=== PATIENT | male | born 1965 | race African-American/Black ===

== ENCOUNTER 2020-08-28 11:54 | Inpatient (IN) | payer OTHER ==
[2020-08-28 12:35] LABS: #Basophils 0.1 thou/uL (0.0-0.2); #Eosinphils 0.4 thou/uL (0.0-0.7); #Lymphocytes 1.9 thou/uL (1.20-3.40); #Monocytes 0.8 thou/uL (0.11-0.59); #Neutrophils 6.3 thou/uL (1.40-6.50); %Basophils 0.7 % (0.0-1.0); %Eosinophils 4.6 % (0.0-10.0); %Lymphocytes 20.1 % (21.0-51.0); %Monocytes 8.8 % (0.0-10.0); %Neutrophils 65.8 % (42.0-75.0); Mean Corpuscular HGB CONC 33.2 g/dL (32.0-36.0); Mean Corpuscular Hemoglobin 33.3 pg (27.0-31.0); Mean Platelet Volume 8.6 fL (7.4-10.4); Platelet Count 269 thou/uL (130-400); Red Blood Cell (RBC) Count 3.59 mill/uL (4.70-6.10); White Blood Cell (WBC) Count 9.6 thou/uL (4.8-10.8)
[2020-08-28 12:58] LABS: ALT (SGPT) 18 U/L (8-55); AST (SGOT) 17 U/L (5-34); Albumin 3.3 g/dL (3.5-5.0); Alkaline Phosphatase 142 U/L (40-110); Anion Gap 13 mmol/L (10-20); BUN (Urea Nitrogen) 21 mg/dL (8.4-25.7); Bilirubin, Total 0.3 mg/dL (0.2-1.2); Calc. Creatinine Clearance 0 mL/min (70-130); Carbon Dioxide 35 mmol/L (22-29); Chloride 96 mmol/L (98-107); Estimated GFR-MDRD 16; Glucose 115 mg/dL (70-105); Potassium 3.2 mmol/L (3.5-5.1); Protein, Total 7.3 g/dL (6.0-8.3); Sodium 141 mmol/L (136-145)
--- NOTE | 2020-08-28 13:46 | RAD ---
PORTABLE CHEST: 08/28/20 PROVIDED CLINICAL HISTORY: Hypotension. FINDINGS: Comparison is made with the study dated 07/03/20. Cardiac and mediastinal silhouette is unchanged. Right IJ dialysis catheter is again seen in similar position. Left sided central line is no longer evident. No focal consolidation, pleural fluid, or pne umothorax apparent. IMPRESSION: No evidence for an acute cardiopulmonary process. POS: TAMEKA
[2020-08-28] MEDS ORDERED: Potassium Chloride 20 MEQ TAB ONE (14:24)
[2020-08-28] MEDS ORDERED: Cefepime 2 GM VIAL ONE ×2 (14:24→14:53)
[2020-08-28] MEDS ORDERED: Ondansetron PF 4 MG/2 ML Vial IVP PRN (16:28)
[2020-08-28] MEDS ORDERED: Guaifenesin DM 100-10/5 ML UDCUP PO PRN (16:28)
[2020-08-28] MEDS ORDERED: Bisacodyl 10 MG SUPP PR PRN (16:28)
[2020-08-28] MEDS ORDERED: Dextrose 5% in Water 1,000 ML IV PRN (16:28)
[2020-08-28] MEDS ORDERED: DOPamine 400 MG/D5W 250 ML 250 ML IVPB PRN (16:28)
[2020-08-28] MEDS ORDERED: Dextrose 50% Abboject 50 ML SYRINGE SLOW IVP PRN (16:28)
[2020-08-28] MEDS ORDERED: Senokot S 8.6-50 MG TAB PO PRN (16:28)
[2020-08-28] MEDS ORDERED: Calcium Carbonate 500 MG ChewTAB PO PRN (16:28)
[2020-08-28] MEDS ORDERED: HumaLOG 300 UNITS/3 ML VIAL SC PRN ×2 (16:28)
[2020-08-28] MEDS ORDERED: Acetaminophen 325 MG TAB PO PRN (16:28)
[2020-08-28] MEDS ORDERED: Sodium Chloride 0.9% 1,000 ML IV SCH (16:30)
[2020-08-28] MEDS ORDERED: Vancomycin HCl 1 GM in Sodium Chloride 0.9% 250 ML 300 ML IVPB SCH (16:30)
--- NOTE | 2020-08-28 17:50 | HP ---
REASON FOR ADMISSION: Hypotension, possible sepsis. HISTORY OF PRESENTING ILLNESS: Please note, the patient is a very poor historian. Per patient, his Guardian [facility] nurse, came to check on him for a routine visit. His blood pressure was 60/40. She called EMS, and the patient was sent to the ER. On arrival here, his systolic blood pressure was in the 80s. He got a liter of bolus, it came up to 106. The blood pressure is trending back to 70s again systolic. He has no complaints of fever, cough, or expectoration. The patient states from January of this year, he has been bed-bound. He has not had any stroke. He apparently had a fall from his bed and ended up having pneumonia, after which he went to [facility] in [facility], and since then, has been bed-bound. He lives with his mom. He states he can scoot himself to a wheelchair for mobilization. He also has chronic sacral wound and has a wound VAC attached to it. He usually goes to [facility]. He has been on dialysis from last 2 months per the patient. He is using his fistula and his tunnel catheter has not been used for the last several times with dialysis per the patient. There is no pain around the tunneled dialysis catheter site. No pain in his calf area, abdominal pain, nausea, vomiting, or diarrhea. No chest pain or palpitation. He does not have any pain in any of his spine areas right from cervical all the way down to the lumbar area. PAST MEDICAL AND SURGICAL HISTORY: End-stage renal disease, on hemodialysis from last 2 months per the patient. He has been bed-bound from January of this year from unknown cause due to severe deconditioning likely. Severe malnutrition with very poor oral intake and states he has been living on soup mostly. History of CHF, chronic anemia, GERD, diabetes mellitus type 2, hypertension, history of osteomyelitis, dialysis access fistula in the left upper extremity. He also has a tunneled dialysis catheter in the right infraclavicular area. PERSONAL HISTORY: Does not abuse alcohol or drugs. No history of smoking. Lives with his mom. He is bed-bound and mobilizes himself to wheelchair. Has guardian, [facility]. FAMILY HISTORY: Cannot be accurately obtained. The patient has 4 children. He is not , has 2 boys and 2 girls. Power of privacy attorney is his mom, Ms. Celeste Sandoval. CURRENT MEDICATIONS: The patient is on: 1. Colace 50 mg daily. 2. Humalog 4 to 5 units subcu daily with meals. 3. Lantus 10 units subcu at bedtime. 4. Omeprazole 20 mg daily. 5. Sevelamer 800 mg p.o. 3 times daily. ALLERGIES: NO KNOWN DRUG ALLERGIES. CODE STATUS: Full. Power of privacy attorney is his mom. REVIEW OF SYSTEMS: CONSTITUTIONAL: Negative for weight loss or gain, ability to conduct usual activities. SKIN: Negative for rash, itching. EYES: Negative for double vision, pain. ENT/MOUTH: Negative for nose bleeding, neck stiffness, pain, tenderness. CARDIOVASCULAR: Negative for palpitations, dyspnea on exertion, orthopnea. RESPIRATORY: Negative for shortness of breath, wheezing, cough, hemoptysis, fever or night sweats. GASTROINTESTINAL: Negative for poor appetite, abdominal pain, heartburn, nausea, vomiting, constipation, or diarrhea. GENITOURINARY: Negative for urgency, frequency, dysuria, nocturia. MUSCULOSKELETAL: Negative for pain, swelling. NEUROLOGIC/PSYCHIATRIC: Negative for anxiety, depression. ALLERGY/IMMUNOLOGIC: Negative for skin rash, bleeding tendency. PHYSICAL EXAMINATION: GENERAL: The patient is a 55-year-old male, who is currently not in any acute distress. VITAL SIGNS: Blood pressure currently 70/50, pulse 84 per minute, respiratory rate 18 per minute, temperature 97.9 degrees Fahrenheit, and saturating 100% on room air. NECK: Supple. No elevated JVD. HEENT: Eyes; extraocular muscles intact. Pupils reacting to light. Oral cavity; mucous membranes are dry. No exudates or congestion. CARDIOVASCULAR SYSTEM: S1 and S2 heard, regular rhythm. RESPIRATORY SYSTEM: Air entry 1+ bilateral. No rales or rhonchi. ABDOMEN: Soft. Bowel sounds heard. No tenderness, rigidity, or guarding. The patient has some voluntary guarding. EXTREMITIES: There is disuse atrophy of all 4 extremities, but he moves them. Mild edema in the lower extremities. No calf tenderness. Peripheral pulses are 1+ bilateral. No ischemic ulcers or gangrene. The patient has sacral decubitus with wound VAC attached. He likely also has some decubitus in the right greater trochanter area, which is unclear at present due to wound VAC being applied in the area. CENTRAL NERVOUS SYSTEM: No gross focal motor deficits noted. The patient is lethargic, but responds to verbal questions. PSYCHIATRIC SYSTEM: The patient is a bit lethargic, but no obvious hallucinations or delusions. LABORATORY DATA: EKG done shows normal sinus rhythm at 89 beats per minute. No gross ST-T wave changes. White count of 9, H and H 12 and 36, platelet count 269, MCV 100 with 65% neutrophils. Potassium 3.2, serum bicarb 35, BUN 21, creatinine 4.7, serum glucose 115. Lactic acid 2.5. Liver enzymes; AST and ALT within normal limits, alkaline phosphatase 142, albumin is 3.3. Chest x-ray done shows no acute cardiopulmonary process. CLINICAL IMPRESSION AND PLAN: The patient will be admitted to [facility] for persistent hypotension to rule out sepsis. We will consult Dr. Dill to remove the tunneled hemodialysis catheter, which is not being used and to send the tip for culture. He has chronic sacral decubitus and his wound is in a wound VAC, unclear if this is infected. There are no other obvious sites of infection at present. Blood cultures have been obtained. We will also obtain COVID-19 PCR. He will be on cefepime, Flagyl, and vancomycin for now. We will consult Dr. Torres for Infectious Disease and Dr. Marsh for Nephrology. PT/OT evaluations will be requested as well as Wound Care. He will be on heparin 5000 units subcu twice daily for DVT prophylaxis. The second liter of bolus is being given in the ER. If needed, third liter will be given and the patient will be placed on normal saline at 100 mL/h thereafter. His last hemodialysis was yesterday. We will also place him on dopamine on a p.r.n. basis if needed. Echo with 2D Doppler to rule out vegetation. We will continue to closely monitor him in [facility] for now. The patient has expressed he wants to be a full code. I have discussed this with him at bedside. Job ID: [id number] MTDD
[2020-08-28 18:15] LABS: Lactic Acid 2.7 mmol/L (0.5-2.2)
[2020-08-28] MEDS ORDERED: Vancomycin HCl 1.25 GM in Sodium Chloride 0.9% 250 ML 250 ML IVPB SCH (18:30)
[2020-08-28] MEDS ORDERED: Lidocaine 1% w/Epinephrine 1:100K 20 ML VIAL FS SCH (22:00)
[2020-08-28] MEDS: Heparin 5,000 UNITS/ML VIAL SC SCH (22:13)
[2020-08-28] MEDS: metroNIDAZOLE 500 MG in Premix Bag 1 BAG IVPB SCH (22:14)
[2020-08-28] MEDS: Sevelamer Carbonate 800 MG TAB PO SCH (22:15)
[2020-08-29 03:34] LABS: #Eosinphils 0.4 thou/uL (0.0-0.7); #Lymphocytes 1.8 thou/uL (1.20-3.40); #Monocytes 0.7 thou/uL (0.11-0.59); #Neutrophils 4.4 thou/uL (1.40-6.50); %Basophils 0.3 % (0.0-1.0); %Eosinophils 5.5 % (0.0-10.0); %Lymphocytes 23.9 % (21.0-51.0); %Monocytes 9.5 % (0.0-10.0); %Neutrophils 60.8 % (42.0-75.0); Hemoglobin 10.1 g/dL (14.0-18.0); Mean Corpuscular HGB CONC 32.4 g/dL (32.0-36.0); Mean Corpuscular Hemoglobin 32.5 pg (27.0-31.0); Mean Platelet Volume 8.7 fL (7.4-10.4); Platelet Count 227 thou/uL (130-400); RBC Distribution Width 15.3 % (11.5-14.5); Red Blood Cell (RBC) Count 3.09 mill/uL (4.70-6.10); White Blood Cell (WBC) Count 7.3 thou/uL (4.8-10.8)
[2020-08-29 03:56] LABS: ALT (SGPT) 14 U/L (8-55); AST (SGOT) 14 U/L (5-34); Albumin 2.6 g/dL (3.5-5.0); Alkaline Phosphatase 109 U/L (40-110); Anion Gap 13 mmol/L (10-20); BUN (Urea Nitrogen) 24 mg/dL (8.4-25.7); Bilirubin, Total 0.3 mg/dL (0.2-1.2); Calc. Creatinine Clearance 19 mL/min (70-130); Calcium 9.2 mg/dL (7.8-10.44); Carbon Dioxide 26 mmol/L (22-29); Chloride 103 mmol/L (98-107); Estimated GFR-MDRD 14; Globulin 3.2 g/dL (2.4-3.5); Glucose 132 mg/dL (70-105); Potassium 3.3 mmol/L (3.5-5.1); Protein, Total 5.8 g/dL (6.0-8.3); Sodium 139 mmol/L (136-145)
[2020-08-29] MEDS ORDERED: Vancomycin 1 GM in Premix Bag 1 BAG IVPB SCH (09:00)
[2020-08-29] MEDS ORDERED: Vancomycin HCl 750 MG in Sodium Chloride 0.9% 250 ML 250 ML IVPB SCH (09:00)
[2020-08-29] MEDS ORDERED: Vancomycin HCl 1.25 GM in Sodium Chloride 0.9% 250 ML 250 ML IVPB SCH (09:00)
[2020-08-29] MEDS ORDERED: Vancomycin HCl 500 MG in Sodium Chloride 0.9% 100 ML IVPB SCH (09:00)
[2020-08-29] MEDS ORDERED: HOLD VANCOMYCIN FOR LEVEL >20 IVP SCH (09:00)
[2020-08-29] MEDS: Sodium Chloride 0.9% 1,000 ML IV SCH (09:10)
[2020-08-29] MEDS: Sevelamer Carbonate 800 MG TAB PO SCH ×3 (09:30→17:25)
[2020-08-29] MEDS: Heparin 5,000 UNITS/ML VIAL SC SCH ×2 (09:30→22:23)
[2020-08-29] MEDS: metroNIDAZOLE 500 MG in Premix Bag 1 BAG IVPB SCH (09:30)
[2020-08-29] MEDS: Docusate Sodium 10 MG/1 ML Oral Suspension PO SCH (09:31)
[2020-08-29] MEDS ORDERED: Iopamidol 370 76% 100 ML VIAL ONE (10:11)
--- NOTE | 2020-08-29 12:05 | PDOC.HOSPP ---
- Subjective Encounter Date: 08/29/20 Encounter Time: 09:30 Subjective: no sob or chest pain no cough or diarrhea or abd pain or nausea says he can amb with rw once someone helps him to get started - Objective Vital Signs & Weight: Vital Signs (12 hours) Temp Pulse Ox 08/29/20 11:56 96.6 F L 08/29/20 08:00 100 08/29/20 07:02 96.7 F L 08/29/20 03:44 100 08/29/20 03:43 97.0 F L Weight Weight 185 lb 15.993 oz Most Recent Monitor Data Heart Rate from ECG 79 NIBP 96/55 NIBP BP-Mean 68 Respiration from ECG 4 SpO2 100 I&O: 08/28/20 08/29/20 08/30/20 06:59 06:59 06:59 Intake Total 340 Output Total 0 Balance 340 Result Diagrams: 08/29/20 03:16 08/29/20 03:16 Additional Labs: Accuchecks 08/29/20 08/29/20 08/28/20 11:05 05:44 23:06 POC Glucose 111 H 112 H 99 Hospitalist ROS - Medication Medications: Active Medications Generic Name Dose Route Start Last Admin Trade Name Freq PRN Reason Stop Dose Admin Docusate Sodium 50 mg 08/29/20 09:00 08/29/20 09:31 Docusate Sodium 10 Mg/1 Ml Oral Suspension PO Not Given DAILY GHASSAN Heparin Sodium (Porcine) 5,000 units 08/28/20 21:00 08/29/20 09:30 Heparin 5,000 Units/Ml Vial SC 5,000 units BID GHASSAN Administration Metronidazole 500 mg/ Device 100 mls @ 100 mls/hr 08/28/20 21:00 08/29/20 09:30 IVPB 100 mls Q12HR GHASSAN Administration Pantoprazole Sodium 40 mg 08/29/20 09:00 08/29/20 09:32 Pantoprazole 40 Mg Tab PO 40 mg DAILY GHASSAN Administration Sevelamer Carbonate 800 mg 08/28/20 17:00 08/29/20 09:30 Sevelamer Carbonate 800 Mg Tab PO 800 mg TID-WM GHASSAN Administration Sodium Chloride 10 ml 08/28/20 21:00 08/29/20 09:32 Flush - Normal Saline 10 Ml Syringe IVF 10 ml Q12HR GHASSAN Administration - Exam General Appearance: awake alert Eye: PERRL, anicteric sclera ENT: no oropharyngeal lesions, moist mucosa Neck: supple, no JVD Heart: RRR, no murmur Respiratory: no wheezes, no rales Gastrointestinal: soft, non-tender, non-distended, normal bowel sounds Extremities: no cyanosis, no edema Neurological: cranial nerve grossly intact, no focal deficits Hosp A/P (1) Hypotension Status: Acute Qualifiers: Hypotension type: unspecified hypotension type Qualified Code(s): I95.9 - Hypotension, unspecified (2) Sepsis Code(s): A41.9 - SEPSIS, UNSPECIFIED ORGANISM Status: Suspected Qualifiers: Sepsis type: sepsis due to unspecified organism Sepsis acute organ dysfunction status: without acute organ dysfunction Qualified Code(s): A41.9 - Sepsis, unspecified organism (3) DM type 2 (diabetes mellitus, type 2) Status: Chronic Qualifiers: Diabetes mellitus intermediate insulin use: with termite control service representative use Diabetes mellitus complication detail: with chronic kidney disease Chronic kidney disease stage: on chronic dialysis (4) Moderate protein-calorie malnutrition Code(s): E44.0 - MODERATE PROTEIN-CALORIE MALNUTRITION Status: Chronic (5) FTT (failure to thrive) in adult Status: Chronic (6) ESRD (end stage renal disease) on dialysis Code(s): N18.6 - END STAGE RENAL DISEASE; Z99.2 - DEPENDENCE ON RENAL DIALYSIS Status: Chronic (7) Hypertension Code(s): I10 - ESSENTIAL (PRIMARY) HYPERTENSION Status: Chronic Qualifiers: Hypertension type: essential hypertension Qualified Code(s): I10 - Essential (primary) hypertension - Plan continue iv hydration await culture results will have removal of his tunnelled HD cath today by still sbp around 80's, his baseline runs around 100 per patient he has lost a lot of weight per patient dietary consultation PT to mobilize as tolerated is on cefepime, vanc with HD, ID consult, echo to r/o vegetation prognosis guarded with multiple med issues and poor functional status. may transfer to tele once his BP stabilizes encourage po intake
[2020-08-29 12:40] LABS: SARS-CoV-2 MS2 Positive; SARS-CoV-2 N Gene Negative; SARS-CoV-2 S Gene Negative; SARS-CoV-2 by NAA Not Detected (NotDetected); SARS-CoV-2 orf1ab Negative
[2020-08-29] MEDS ORDERED: Cefepime 1 GM in Sodium Chloride 0.9% 100 ML IVPB SCH (14:00)
[2020-08-29] MEDS ORDERED: Cosyntropin 250 MCG VIAL SLOW IVP SCH (16:45)
--- NOTE | 2020-08-29 16:53 | PRG ---
DATE OF SERVICE: 08/29/2020 Bob Sandoval is a 55-year-old male patient, who has a functioning dialysis graft placed on 07/02/2020 left upper extremity. They have been using this for hemodialysis. I have been asked to see him regarding removal of his hemodialysis catheter. The patient has had low blood pressure of uncertain reason. He remains afebrile. His white count is 7 and hemoglobin is 10. He is undergoing a CT scan of the abdomen and pelvis. I can remove his hemodialysis catheter this hospitalization prior to discharge. We will plan on that. This will be performed at his bedside under local anesthetic and he does not need to be n.p.o. We will await his CAT scan and assure he does not need this line for IV access. Job ID: [id number]
[2020-08-29] MEDS ORDERED: Heparin 10,000 UNITS/ 10 ML VIAL CATH PRN (20:26)
[2020-08-29] MEDS ORDERED: FLU VACC QS2020-21(6MOS UP)/PF 60 MCG/0.5 ML SYRINGE IM ONE (21:00)
--- NOTE | 2020-08-29 22:07 | CT ---
CHEST CT WITH CONTRAST ABDOMEN CT WITH CONTRAST PELVIC CT WITH CONTRAST: History: Sepsis. Unknown source. Infection. FINDINGS: CHEST CT: No acute abnormality in the lower neck. No mediastinal mass, lymphadenopathy, or hematoma. Normal heart size. No significant pericardial flui d. The thoracic abnormal and the abdominal aorta have a normal caliber. No periaortic fat stranding. Trachea and central bronchi are patent. Subpleural lymph node adjacent to the major fissure. Dependen t atelectatic changes in the right and left lower lobes. Trace left sided pleural effusion. Small loc ulated air collection along the lateral right pleural margin may represent a tiny loculated pneumotho rax. Small pleural based air collections are noted along the right major fissure. No evidence of consolidation. ABDOMEN CT: Mild hyperemia and enhancement associated with the gallbladder. Gallbladder is contracted. Liver, spleen, adrenal glands and pancreas have appropriate attenuation and enhancement. No gastrohepatic, retrocrural, or periportal lymphadenopathy. No mesenteric mass, lymphadenopathy, free air or free fluid. Symmetric enhancement of the kidneys. Bilaterally, no obstructive uropathy. Subcentimeter hypodensity in the left kidney is too small to characterize. Gastromucosa, duodenum, and multiple normal caliber small bowel loops. Normal ileocecal junction. Nor mal caliber appendix. Scattered fecal material in a nondistended, nondilated colon. There is bowel wa ll thickening with pericolonic fat stranding and pneumatosis involving the distal sigmoid colon and r ectum. There is presacral fat stranding. There is concern for sequelae of colitis. PELVIC CT: No mass, lymphadenopathy, free air or free fluid. No acute abnormality with regards to the urinary bl adder. There is a sacral decubitus ulcer. There is destruction of the coccyx, compatible with osteomyelitis. No lytic or blastic lesions in the osseous structures. IMPRESSION: 1. Small loculated pleural air in the right hemithorax. These are in the pleural space and do cl assify as pneumothoraces. However, these lesions are contained. 2. Sequelae of colitis. 3. Decubitus ulcer. 4. Osteomyelitis of the coccyx. 5. Results of study conveyed to Dr. Strickland via [facility] 08-29-2020 at 8:38 p.m. POS: PPP
--- NOTE | 2020-08-29 23:17 | CON ---
DATE OF CONSULTATION: 08/29/2020 REASON: Hypotension. HISTORY OF PRESENT ILLNESS: A 55-year-old, history of type 2 diabetes and end- stage renal disease, on hemodialysis until now through a tunneled catheter in the right IJ position, but that catheter is going to be removed, and he has already successfully used the left upper extremity AV graft that was placed a few months ago. He has normally low blood pressure, usually the maximum systolic is 100, and he is having physical therapy after a recent discharge from [facility] where he was admitted for not yet very clear reason, so he has been getting physical therapy for the past 2 months to try to get him to walk again. He is able to move his legs, but is too weak to walk for the past few months. His home health nurse checked and his BP was 60/40, so she referred him to the emergency room. On arrival, systolic was in the 80s, he was given IV fluids, went up to 106. The patient reportedly has not eaten or drank much of fluids over the past few weeks for unclear etiology. He denies any vomiting. No diarrhea. He does not have much urine output. Has not had any fever. No respiratory symptoms. No pain described. No change in mental state. MEDICAL HISTORY: 1. End-stage renal disease secondary to type 2 diabetes, hemodialysis through a tunneled catheter. 2. Weakness. 3. Inability to ambulate for unclear etiology. 4. Malnutrition. Poor oral intake for unclear etiology. 5. Cardiomyopathy. 6. Chronic anemia. 7. Type 2 diabetes. 8. Hypertension. 9. Osteomyelitis in the feet. 10. Dialysis access fistula, left upper extremity, not a graft, but a fistula, and a tunneled catheter in the right IJ. SOCIAL HISTORY: Lives in the area. Never a smoker. FAMILY HISTORY: Type 2 diabetes. ALLERGIES: NONE. MEDICATION: Include, 1. Cefepime. 2. Dopamine. 3. Heparin. 4. Vancomycin. 5. Sliding scale. 6. Flagyl. PHYSICAL EXAMINATION: VITAL SIGNS: He was afebrile through the stay in the emergency room. He was saturating 100% as well. His BP on arrival was 80/40 and then 118/72. SKIN: Exam shows areas of hyperkeratosis at the distal aspect of his feet. Some onycholysis noted as well. He has a tunneled catheter in the right IJ position which is supposed to be removed shortly and the left AV fistula which is functional at the moment. He has no Posey catheter. He is voiding whatever small amount of urine goes in the diaper. Some areas of hyperpigmented patches in his skin. There is no lymphadenopathy. HEENT: Ocular movements conjugate. Some temporal wasting. Oral cavity without thrush. NECK: Supple. No jugular vein distention. LUNGS: Symmetric. Clear breath sounds. HEART: S1 and S2 with a soft aortic murmur. No S3 or S4. ABDOMEN: Soft. Not distended or tender. No ascites. No bladder distention. No organomegaly. EXTREMITIES: No joint inflammatory activity. Plantar responses are upgoing on the left side. No clonus. No edema. He is able to move upper and lower extremities, but he is weak. NEUROLOGIC: He is oriented. Follows commands. Speech is normal. LABORATORY DATA: White cell count 9.6, hemoglobin 7.3, platelets 227, with 60% neutrophils. Creatinine 5.24. Liver profile normal. Albumin 2.6. Two sets of blood cultures thus far no growth. Chest x-ray with no infiltrates. ASSESSMENT: 1. End-stage renal disease secondary to type 2 diabetes. 2. Anorexia with decreased oral intake and marked weight loss over the past few months of unclear etiology. 3. Malnutrition. DISCUSSION: The differential diagnosis includes an undisclosed malignancy, gastroparesis, liver disease, and infection is less likely, volume depletion associated with malnutrition due to protracted decrease in oral intake and self-restricted dietary intake is possible, but there is no evidence of increased output from vomiting, nausea, or diarrhea. Geary's disease possible. At this moment, we will discontinue antimicrobial therapy and check his micronutrients. Consider Cortrosyn stimulation test and follow up the results of the CT scan that has been ordered. May want to consider imaging his chest as well. Job ID: [id number] [facility]
[2020-08-30] MEDS: Sodium Chloride 0.9% 1,000 ML IV SCH ×2 (03:30→16:20)
[2020-08-30] MEDS ORDERED: Heparin 10,000 UNITS/ 10 ML VIAL ONE (09:21)
[2020-08-30] MEDS: Sevelamer Carbonate 800 MG TAB PO SCH ×3 (12:37→16:44)
[2020-08-30] MEDS: Heparin 5,000 UNITS/ML VIAL SC SCH ×2 (13:38→21:33)
[2020-08-30] MEDS: Docusate Sodium 10 MG/1 ML Oral Suspension PO SCH (13:38)
--- NOTE | 2020-08-30 14:05 | PDOC.HOSPP ---
- Subjective Encounter Date: 08/30/20 Encounter Time: 11:00 Subjective: is getting HD now no complaints has loss of appetite and didn't like his breakfast - Objective Vital Signs & Weight: Vital Signs (12 hours) Temp Pulse Ox 08/30/20 12:00 97.6 F 08/30/20 07:38 96.4 F L 08/30/20 07:30 100 08/30/20 03:53 97.6 F Weight Admit Weight 185 lb 6 oz Weight 190 lb 8 oz Most Recent Monitor Data Heart Rate from ECG 81 NIBP 118/67 NIBP BP-Mean 84 Respiration from ECG 8 SpO2 100 I&O: 08/29/20 08/30/20 08/31/20 06:59 06:59 06:59 Intake Total 340 3380 Output Total 0 0 Balance 340 3380 Result Diagrams: 08/29/20 03:16 08/29/20 03:16 Additional Labs: Accuchecks 08/30/20 08/30/20 08/29/20 10:52 05:57 23:10 POC Glucose 84 95 92 08/29/20 16:40 POC Glucose 79 Hospitalist ROS - Medication Medications: Active Medications Generic Name Dose Route Start Last Admin Trade Name Freq PRN Reason Stop Dose Admin Cosyntropin 250 mcg 08/29/20 16:45 08/30/20 05:42 Cosyntropin 250 Mcg Vial SLOW IVP 08/30/20 16:46 250 mcg WILLCALL GHASSAN Administration Docusate Sodium 50 mg 08/29/20 09:00 08/30/20 13:38 Docusate Sodium 10 Mg/1 Ml Oral Suspension PO Not Given DAILY GHASSAN Heparin Sodium (Porcine) 5,000 units 08/28/20 21:00 08/30/20 13:38 Heparin 5,000 Units/Ml Vial SC Not Given BID GHASSAN Sodium Chloride 1,000 mls @ 70 mls/hr 08/29/20 11:45 08/30/20 03:30 Normal Saline 0.9% IV 1,000 mls .[id number] GHASSAN Administration Pantoprazole Sodium 40 mg 08/29/20 09:00 08/29/20 09:32 Pantoprazole 40 Mg Tab PO 40 mg DAILY GHASSAN Administration Sevelamer Carbonate 800 mg 08/28/20 17:00 08/30/20 12:37 Sevelamer Carbonate 800 Mg Tab PO Not Given TID-WM GHASSAN Sodium Chloride 10 ml 08/28/20 21:00 08/30/20 13:38 Flush - Normal Saline 10 Ml Syringe IVF Not Given Q12HR GHASSAN - Exam General Appearance: awake alert Eye: PERRL, anicteric sclera ENT: no oropharyngeal lesions, moist mucosa Neck: supple, no JVD Heart: RRR, no murmur Respiratory: no wheezes, no rales Gastrointestinal: soft, non-tender, non-distended, normal bowel sounds Extremities: no cyanosis, no edema Neurological: cranial nerve grossly intact, no focal deficits Psychiatric: A&O x 3 Hosp A/P (1) Hypotension Status: Resolved Qualifiers: Hypotension type: unspecified hypotension type Qualified Code(s): I95.9 - Hypotension, unspecified (2) Sepsis Code(s): A41.9 - SEPSIS, UNSPECIFIED ORGANISM Status: Ruled-out Qualifiers: Sepsis type: sepsis due to unspecified organism Sepsis acute organ dysf unction status: without acute organ dysfunction Qualified Code(s): A41.9 - Sepsis, unspecified organism (3) DM type 2 (diabetes mellitus, type 2) Status: Chronic Qualifiers: Diabetes mellitus petroleum terminal plant operator insulin use: with petroleum terminal plant operator use Diabetes mellitus complication detail: with chronic kidney disease Chronic kidney disease stage: on chronic dialysis (4) Moderate protein-calorie malnutrition Code(s): E44.0 - MODERATE PROTEIN-CALORIE MALNUTRITION Status: Chronic (5) FTT (failure to thrive) in adult Status: Chronic (6) ESRD (end stage renal disease) on dialysis Code(s): N18.6 - END STAGE RENAL DISEASE; Z99.2 - DEPENDENCE ON RENAL DIALYSIS Status: Chronic (7) Hypertension Code(s): I10 - ESSENTIAL (PRIMARY) HYPERTENSION Status: Chronic Qualifiers: Hypertension type: essential hypertension Qualified Code(s): I10 - Essentia l (primary) hypertension - Plan hypotension due to inadequate oral intake and cachexia from loss of appetite CT imaging shows signs of coccygeal osteo??, has chronic decubitus in the area stage 4 with wound vac, await ID/surgical opinion his baseline sbp runs around 100 per patient he has lost a lot of weight per patient dietary consultation PT to mobilize as tolerated is on vanc with HD, echo shows normal ef and no vegetation prognosis guarded with multiple med issues and poor functional status. may transfer to medical encourage po intake may need placement?
[2020-08-31] MEDS: Sevelamer Carbonate 800 MG TAB PO SCH ×3 (08:27→18:00)
[2020-08-31] MEDS: Heparin 5,000 UNITS/ML VIAL SC SCH ×2 (08:27→21:49)
[2020-08-31] MEDS: Docusate Sodium 10 MG/1 ML Oral Suspension PO SCH (08:28)
--- NOTE | 2020-08-31 13:43 | PDOC.HOSPP ---
- Subjective Encounter Date: 08/31/20 Encounter Time: 08:45 Subjective: no complaints is eating better per patient - Objective Vital Signs & Weight: Vital Signs (12 hours) Temp Pulse Resp BP Pulse Ox 08/31/20 13:38 98.0 F 81 20 103/69 98 08/31/20 07:47 97.7 F 93 18 106/73 99 08/31/20 04:00 97.7 F 84 20 97/53 L 99 Weight Admit Weight 185 lb 6 oz Weight 187 lb 9.285 oz Most Recent Monitor Data Heart Rate from ECG 107 NIBP 126/77 NIBP BP-Mean 93 Respiration from ECG 17 SpO2 100 I&O: 08/30/20 08/31/20 09/01/20 06:59 06:59 06:59 Intake Total 3380 1570 Output Total 0 1000 Balance 3380 570 Result Diagrams: 08/29/20 03:16 08/29/20 03:16 Additional Labs: Accuchecks 08/31/20 08/31/20 08/30/20 11:52 05:01 20:40 POC Glucose 96 100 119 H Hospitalist ROS - Medication Medications: Active Medications Generic Name Dose Route Start Last Admin Trade Name Freq PRN Reason Stop Dose Admin Acetaminophen 650 mg 08/28/20 16:28 08/31/20 11:07 Acetaminophen 325 Mg Tab PO 650 mg Q4H PRN Administration Headache/Fever/Mild Pain (1-3) Docusate Sodium 50 mg 08/29/20 09:00 08/31/20 08:28 Docusate Sodium 10 Mg/1 Ml Oral Suspension PO Not Given DAILY GHASSAN Heparin Sodium (Porcine) 5,000 units 08/28/20 21:00 08/31/20 08:27 Heparin 5,000 Units/Ml Vial SC 5,000 units BID GHASSAN Administration Pantoprazole Sodium 40 mg 08/29/20 09:00 08/31/20 08:27 Pantoprazole 40 Mg Tab PO 40 mg DAILY GHASSAN Administration Sevelamer Carbonate 800 mg 08/28/20 17:00 08/31/20 11:07 Sevelamer Carbonate 800 Mg Tab PO 800 mg TID-WM GHASSAN Administration Sodium Chloride 10 ml 08/28/20 21:00 08/31/20 08:28 Flush - Normal Saline 10 Ml Syringe IVF Not Given Q12HR GHASSAN - Exam General Appearance: NAD, awake alert Eye: PERRL, anicteric sclera ENT: no oropharyngeal lesions, moist mucosa Neck: supple, no JVD Heart: RRR, no murmur Respiratory: no wheezes, no rales Gastrointestinal: soft, non-tender, non-distended, normal bowel sounds Extremities: no cyanosis, 1+ LE edema Neurological: cranial nerve grossly intact, no focal deficits Psychiatric: normal affect, A&O x 3 Hosp A/P (1) Hypotension Status: Resolved Qualifiers: Hypotension type: unspecified hypotension type Qualified Code(s): I95.9 - Hypotension, unspecified (2) Sepsis Code(s): A41.9 - SEPSIS, UNSPECIFIED ORGANISM Status: Ruled-out Qualifiers: Sepsis type: sepsis due to unspecified organism Sepsis acute organ dysfunct ion status: without acute organ dysfunction Qualified Code(s): A41.9 - Sepsis, unspecified organism (3) DM type 2 (diabetes mellitus, type 2) Status: Chronic Qualifiers: Diabetes mellitus terminal operator insulin use: with terminal operator use Diabetes mellitus complication detail: with chronic kidney disease Chronic kidney disease stage: on chronic dialysis (4) Moderate protein-calorie malnutrition Code(s): E44.0 - MODERATE PROTEIN-CALORIE MALNUTRITION Status: Chronic (5) FTT (failure to thrive) in adult Status: Chronic (6) ESRD (end stage renal disease) on dialysis Code(s): N18.6 - END STAGE RENAL DISEASE; Z99.2 - DEPENDENCE ON RENAL DIALYSIS Status: Chronic (7) Hypertension Code(s): I10 - ESSENTIAL (PRIMARY) HYPERTENSION Status: Chronic Qualifiers: Hypertension type: essential hypertension Qualified Code(s): I10 - Essential (primary) hypertension - Plan hypotension due to inadequate oral intake and cachexia from loss of appetite CT imaging shows signs of coccygeal osteo??, has chronic decubitus in the area stage 4 with wound vac, await ID/surgical opinion his baseline sbp runs around 100 per patient he has lost a lot of weight per patient dietary consultation PT to mobilize as tolerated echo shows normal ef and no vegetation prognosis guarded with multiple med issues and poor functional status. encourage po intake he stays with his mother and brother who will help him on discharge, he does not want to be placed.
--- NOTE | 2020-08-31 14:49 | PRG ---
DATE OF SERVICE: 08/31/2020 Bob Sandoval is doing well. His white count is normal. Blood cultures negative. CAT scan of the abdomen, pelvis, and chest suggested sacral osteomyelitis. The patient is on dialysis. He does not need his hemodialysis catheter for dialysis anymore, but his hemodialysis catheter is a cuffed-tunneled catheter and if Dr. Torres needs antibiotics that cannot be administered during dialysis, this would serve as IV access. We will await Dr. Torres' decision prior to removing the catheter. The catheter also is being used for IV access in this hospitalization. I can remove the catheter before discharge or at a later time as outpatient depending on Dr. Torres' recommendations. Job ID: [id number]
[2020-09-01] MEDS: Sevelamer Carbonate 800 MG TAB PO SCH ×3 (09:07→17:58)
[2020-09-01] MEDS: Docusate Sodium 10 MG/1 ML Oral Suspension PO SCH (09:07)
[2020-09-01] MEDS: Heparin 5,000 UNITS/ML VIAL SC SCH ×2 (13:18→22:05)
[2020-09-01 13:51] VITALS: BMI 28.5
--- NOTE | 2020-09-01 14:05 | PDOC.HOSPP ---
- Subjective Encounter Date: 09/01/20 Encounter Time: 08:15 Subjective: is getting HD, no abd pain or sob - Objective Vital Signs & Weight: Vital Signs (12 hours) Temp Pulse Resp BP Pulse Ox 09/01/20 07:57 97.7 F 78 16 114/76 99 Weight Admit Weight 185 lb 6 oz Weight 210 lb 8 oz Most Recent Monitor Data Heart Rate from ECG 107 NIBP 126/77 NIBP BP-Mean 93 Respiration from ECG 17 SpO2 100 I&O: 08/31/20 09/01/20 09/02/20 06:59 06:59 06:59 Intake Total 1570 840 Output Total 1000 Balance 570 840 Result Diagrams: 08/29/20 03:16 08/29/20 03:16 Additional Labs: Accuchecks 09/01/20 08/31/20 08/31/20 04:37 19:50 16:00 POC Glucose 96 91 113 H Hospitalist ROS - Medication Medications: Active Medications Generic Name Dose Route Start Last Admin Trade Name Freq PRN Reason Stop Dose Admin Acetaminophen 650 mg 08/28/20 16:28 08/31/20 11:07 Acetaminophen 325 Mg Tab PO 650 mg Q4H PRN Administration Headache/Fever/Mild Pain (1-3) Docusate Sodium 50 mg 08/29/20 09:00 09/01/20 09:07 Docusate Sodium 10 Mg/1 Ml Oral Suspension PO Not Given DAILY [facility] Heparin Sodium (Porcine) 5,000 units 08/28/20 21:00 09/01/20 13:18 Heparin 5,000 Units/Ml Vial SC Not Given BID GHASSAN Pantoprazole Sodium 40 mg 08/29/20 09:00 09/01/20 13:19 Pantoprazole 40 Mg Tab PO Not Given DAILY GHASSAN Sevelamer Carbonate 800 mg 08/28/20 17:00 09/01/20 13:19 Sevelamer Carbonate 800 Mg Tab PO Not Given TID-WM [facility] Sodium Chloride 10 ml 08/28/20 21:00 09/01/20 09:07 Flush - Normal Saline 10 Ml Syringe IVF Not Given Q12HR GHASSAN - Exam General Appearance: awake alert Eye: PERRL, anicteric sclera ENT: no oropharyngeal lesions, moist mucosa Neck: supple, no JVD Heart: RRR, no murmur Respiratory: no wheezes, no rales Gastrointestinal: soft, non-tender, non-distended, normal bowel sounds Extremities: no cyanosis, 1+ LE edema Neurological: cranial nerve grossly intact, no focal deficits Psychiatric: normal affect, A&O x 3 Hosp A/P (1) Hypotension Status: Resolved Qualifiers: Hypotension type: unspecified hypotension type Qualified Code(s): I95.9 - Hypotension, unspecified (2) Sepsis Code(s): A41.9 - SEPSIS, UNSPECIFIED ORGANISM Status: Ruled-out Qualifiers: Sepsis type: sepsis due to unspecified organism Sepsis acute organ dysfunction status: without acute organ dysfunction Qualified Code(s): A41.9 - Sepsis, unspecified organism (3) DM type 2 (diabetes mellitus, type 2) Status: Chronic Qualifiers: Diabetes mellitus tank terminal gauger insulin use: with tank terminal gauger use Diabetes mellitus complication detail: with chronic kidney disease Chronic kidney disease stage: on chronic dialysis (4) Moderate protein-calorie malnutrition Code(s): E44.0 - MODERATE PROTEIN-CALORIE MALNUTRITION Status: Chronic (5) FTT (failure to thrive) in adult Status: Chronic (6) ESRD (end stage renal disease) on dialysis Code(s): N18.6 - END STAGE RENAL DISEASE; Z99.2 - DEPENDENCE ON RENAL DIALYSIS Status: Chronic (7) Hypertension Code(s): I10 - ESSENTIAL (PRIMARY) HYPERTENSION Status: Chronic Qualifiers: Hypertension type: essential hypertension Qualified Code(s): I10 - Essential (primary) hypertension - Plan hypotension due to inadequate oral intake resolved, has cachexia from loss of appetite CT imaging shows signs of coccygeal osteo??, has chronic decubitus in the area stage 4 with wound vac, await ID opinion his baseline sbp runs around 100 per patient he has lost a lot of weight per patient dietary consultation PT to mobilize as tolerated, says he mobilizes with rolling walker at home. echo shows normal ef and no vegetation prognosis guarded with multiple med issues and poor functional status. encourage po intake he stays with his mother and brother who will help him on discharge, he does not want to be placed.
[2020-09-01] MEDS ORDERED: Vancomycin HCl 1 GM in Sodium Chloride 0.9% 250 ML 250 ML IVPB SCH (16:15)
--- NOTE | 2020-09-01 16:31 | PRG ---
DATE OF SERVICE: SUBJECTIVE: The patient is feeling well, counting on being discharged soon. He does not have any shortness of breath or abdominal pain or diarrhea and spoke with Dr. Dill and he was enquiring about keeping the tunneled catheter in place, which might help administer the antimicrobial therapy for his treatments. OBJECTIVE: VITAL SIGNS: His vital signs are normal. He is afebrile. Blood pressure 114/76, heart rate 70, and O2 sats 99. GENERAL: Awake, alert, oriented. LUNGS: Symmetric, clear breath sounds. HEART: S1 and S2. Tunneled catheter in the left IJ position. ABDOMEN: Soft, not distended. Presacral ulceration with a negative pressure dressing. LABORATORY DATA: White cell count 9.6, hemoglobin 12, platelets 269. ASSESSMENT AND DISCUSSION: End-stage renal disease, type 2 diabetes, anorexia, decreased oral intake, marked weight loss, malnutrition. The patient had a CT chest, abdomen, and pelvis and it showed a small loculated pleural area in the right hemithorax, sequelae of colitis with pericolonic fat stranding and pneumatosis involving the distal sigmoid colon and the rectum, presacral fat stranding, osteomyelitis of coccyx, decubitus ulcer, so we are forced to treat this finding and we will go ahead and prescribe vancomycin sliding scale plus Rocephin and Flagyl and Flagyl orally adjusted for renal function and Rocephin 2 g daily given through the dialysis catheter which is not used for dialysis only. Alternate approach would be to give him all oral regimen altogether, which would allow removal of the hemodialysis catheter. Weekly labs until the end of September. The area of colitis is not clear. He probably will need down the road an endoscopy to evaluate the mucosal side of this process. Job ID: [id number]
[2020-09-01] MEDS ORDERED: Vancomycin 1 GM in Premix Bag 1 BAG IVPB SCH (16:45)
[2020-09-01] MEDS: metroNIDAZOLE 250 MG TAB PO SCH (22:04)
[2020-09-02] MEDS: Docusate Sodium 10 MG/1 ML Oral Suspension PO SCH (08:41)
[2020-09-02] MEDS: Heparin 5,000 UNITS/ML VIAL SC SCH ×2 (08:42→20:22)
[2020-09-02] MEDS: metroNIDAZOLE 250 MG TAB PO SCH ×3 (08:42→20:22)
[2020-09-02] MEDS: Sevelamer Carbonate 800 MG TAB PO SCH ×3 (08:42→17:07)
--- NOTE | 2020-09-02 16:32 | DIS ---
DATE OF ADMISSION: 08/28/2020 DATE OF DISCHARGE: 09/02/2020 DISCHARGE DISPOSITION: Home with [facility]. PRIMARY DISCHARGE DIAGNOSES: Coccygeal osteomyelitis, sepsis, failure to thrive with severe protein malnutrition, diabetes mellitus type 2, initial hypotension due to poor oral intake and loss of appetite. PROCEDURES DONE DURING HOSPITALIZATION: Chest x-ray showed no acute cardiopulmonary process. CT chest, abdomen, and pelvis with contrast done showed findings of small loculated pleural air in the right hemithorax, decubitus ulcer in the sacral area, osteomyelitis of the coccyx. Echo with 2D Doppler showed EF of 60% to 65%. LABORATORY DATA: Blood cultures x2, no growth. Hemoglobin and hematocrit of 10 and 31, platelet count 227. Vitamin B12 of 1108. Vitamin C 0.3 mg/dL, which is low. He has had cortisol stimulation test done, which was within normal limits. Albumin 2.6, total protein 5.8, BUN 24, creatinine 5.24. COVID-19 PCR was not detected on 08/28/2020. INPATIENT CONSULT: 1. Dr. Dill for General Surgery. 2. Dr. Torres for Infectious Disease. DISCHARGE MEDICATIONS: 1. Humalog 10 units subcu before meals. 2. Lantus q.a.m. as before. 3. Omeprazole 20 mg p.o. daily. 4. Sevelamer 800 mg p.o. three times daily. 5. Flagyl 250 mg p.o. three times daily until October 11. 6. Levaquin 250 mg p.o. daily until October 11. 7. Vancomycin with hemodialysis, sliding scale until October 11. The above 3 antibiotics are for osteomyelitis. ALLERGIES: NO KNOWN DRUG ALLERGIES. DISCHARGE PLAN: The patient to follow up with Dr. Torres in 2 weeks. He needs to follow up with primary care physician in 1 week. BRIEF COURSE DURING HOSPITALIZATION: The patient initially got admitted on the after his home health nurse found him having low blood pressures at home. He was given nearly 3 L of IV fluid and was initially admitted to [facility] with initial suspicion for possible sepsis. The patient had a tunnel catheter on the right chest, which he was not using as his AV graft was working fine for dialysis. In view of this, a Surgical consultation with Dr. Dill was requested for possible removal of the tunneled catheter. He has had pancultures drawn, which have not grown any organism. The patient has chronic sacral decubitus stage IV, present on arrival, which was in a wound VAC prior to arrival. The patient has had severe protein malnutrition and had loss of appetite. He has essentially been bed- bound from January of this year. Mr. Sandoval has had consultation with Dr. Marsh for Nephrology and has had dialysis during his stay here. In view of the patient losing weight from last few months and his loss of appetite, a CT chest, abdomen, and pelvis with contrast was obtained. This showed findings of osteomyelitis in the coccyx. He was placed on vancomycin, Flagyl, and Levaquin. He needs to continue this until October 11. Wound care was consulted to his sacral decubitus while he was in the hospital. The patient has [facility] and needs to continue the same. He was counseled with regard to eating healthy and exercising with physical therapy with home health. He was also given prescriptions for multivitamin including vitamin C and extra folic acid for nutritional deficiencies that he has. Please note, I have seen and examined the patient on the day of discharge. Job ID: [id number] [facility]
[2020-09-02 19:50] VITALS: BP 107/70; TEMP 97.7
--- NOTE | 2020-09-03 06:28 | OP ---
DATE OF PROCEDURE: 09/02/2020 PREOPERATIVE DIAGNOSES: End-stage renal disease, functioning dialysis graft, in need of dialysis catheter removal. POSTOPERATIVE DIAGNOSES: End-stage renal disease, functioning dialysis graft, in need of dialysis catheter removal. PROCEDURES PERFORMED: Right IJ cuffed tunneled hemodialysis catheter removal at bedside. ANESTHESIA: 1% Xylocaine with epinephrine. PROCEDURE IN DETAIL: At the patient's bedside, the catheter exit site was prepared with alcohol, suture removed, catheter and cuff dissected free under local anesthetic and removed intact. Pressure held for hemostasis. Patient tolerated the procedure well. Job ID: [id number]
--- NOTE | 2020-09-03 09:47 | PQF ---
CLINICAL DOCUMENTATION CLARIFICATION FORM: Dear Dr. Strickland Date: 09/03/2020 Please exercise your independent, professional judgment in responding to the clarification form. Clinical indicators are provided on the bottom of this form for your review. Please check appropriate box(es): Conflicting documentation was noted in the Medical Record; please clarify: [ x ] Sepsis [ ] Sepsis Ruled Out [ ] Other diagnosis [ ] Unable to determine In addition, please specify: Present on Admission (POA): [ x ] Yes [ ] No [ ] Unable to determine For continuity of documentation, please document condition throughout progress notes and discharge summary. Thank You. CLINICAL INDICATORS - SIGNS / SYMPTOMS / LABS / RESULTS AND LOCATION IN EMR *ED 08/28: * Vital Signs: BP 80/40-118/77 Pulse 80-89 RR 18 Temp (Max) 98.9 (oral) O2 Sat 98-100% Room Air * Slight elevation in lactic acid but no leukocytosis and no evidence for other systemic infection at this time. * Hypotension * Rule out Sepsis *LAB (EMR): WBC Neutrophils % Lactic Acid Procalcitonin 08/28 9.6 65.8 2.5 - 2.7 0.60 08/29 7.3 60.8 *H&P 08/28 (Marco A): * Admitted to IMCU for persistent hypotension to rule out sepsis * He has chronic sacral decubitis and his wound is in a wound VAC, unclear if this is infected. * We will consult Dr. Dill to remove the tunneled hemodialysis catheter send the tip for culture. *PN 08/29 (Marco A): Sepsis Status: Suspected *PN 08/30 (Marco A): * Sepsis Status: Ruled-Out * Hypotension due to inadequate oral intake and cachexia from loss of appetite. *PN 08/31 (Fuentes): * Blood cultures negative. * CAT scan of the abdomen, pelvis, and chest suggested sacral osteomyelitis. *DC Summary 09/02 (Marco A): * Primary Discharge Diagnosis: Coccygeal osteomyelitis, sepsis, failure to thrive with severe protein malnutrition initial hypotension due to poor oral intake and loss of appetite. RISK FACTORS / RESULTS AND LOCATION IN EMR *H&P 08/28 (Marco A): * Chronic sacral wound and has a wound VAC attached to it. * ... Tunneled dialysis catheter * Bed-bound from January . Severe deconditioning likely. * Severe malnutrition with very poor oral intake * Diabetes mellitus type 2 *PN 08/31 (Fuentes): CAT scan of the abdomen, pelvis, and chest suggested sacral osteomyelitis. TREATMENTS / RESULTS AND LOCATION IN EMR *ED 08/28: NS 1L x2 IV, NS 75 ml/h IV , Cefepime IV *H&P 08/28 (Marco A): Admitted to IMCU Consult Dr. Dill to remove the tunneled hemodialysis catheter Blood cultures have been obtained. He will be on cefepime, Flagyl, and vancomycin for now. We will consult Dr. Torres for Infectious Disease If needed, third liter will be given ... will be placed on NS at 100 ml/h thereafter. Echo with 2D Doppler to rule out vegetation. *Orders 08/28 (EMR): Consult: WoundCare Eval/Treat *Consultation 08/29 (Brian): At this moment, we will discontinue antimicrobial therapy and check his micronutrients. *Microbiology 08/28 (EMR): Blood Culture x2 *LAB ([facility]): CBC 08/28, 08/29, Lactic Acid 08/28 (x2), Procalcitonin 08/28 *PN 09/01 (Brian): .... Vancomycin sliding scale plus Rocephin and Flagyl and Flagyl orally adjusted for renal function and Rocephin 2 g daily given through the dialysis catheter .... Alternate approach would be to give him all oral regiment altogether, which would allow removal of the hemodialysis catheter. Thank you, Petra CDS/Director Physical Therapy Signature: Petra Lovell RN, CDS Phone #: [phone] [email or web address] This is a permanent part of the Medical Record [facility]
== END 2020-09-02 20:32 | disposition home health service (06) | DRG 871 ==
LOC: ERS 11:54 → IMCU/EMU 14:58 → T4-B 08-30 18:50
PROVIDERS: ADMIT Internal Medicine; ATTEND Internal Medicine
PROC: 3E02340 Introduction of Influenza Vaccine into Muscle, Percutaneous Approach (ICD-10-PCS; 2020-08-29)
PROC: 5A1D70Z Performance of Urinary Filtration, Intermittent, Less than 6 Hours Per Day (ICD-10-PCS; principal; 2020-08-30)
PROC: 02PYX3Z Removal of Infusion Device from Great Vessel, External Approach (ICD-10-PCS; 2020-09-02)
DX: A41.9 Sepsis, unspecified organism (principal); L89.154 Pressure ulcer of sacral region, stage 4; N18.6 End stage renal disease; E43 Unspecified severe protein-calorie malnutrition; I13.2 Hypertensive heart and chronic kidney disease with heart failure and with stage 5 chronic kidney disease, or end stage renal disease; I42.8 Other cardiomyopathies; R64 Cachexia; M46.28 Osteomyelitis of vertebra, sacral and sacrococcygeal region; K21.9 Gastro-esophageal reflux disease without esophagitis; E11.22 Type 2 diabetes mellitus with diabetic chronic kidney disease; E11.69 Type 2 diabetes mellitus with other specified complication; Z20.828 Contact with and (suspected) exposure to other viral communicable diseases; Z99.2 Dependence on renal dialysis; Z74.01 Bed confinement status; Z99.3 Dependence on wheelchair; Z79.899 Other long term (current) drug therapy; Z79.4 Long term (current) use of insulin; Z68.27 Body mass index [BMI] 27.0-27.9, adult; Z23 Encounter for immunization
CPT/HCPCS: 36415; 36416; 36600; 71045; 71260; 74177; 80053; 80400; 82180; 82274; 82607; 83605; 84145; 84207; 84425; 84484; 85025; 87040; 87635; 90471; 90662; 90935; 93005; 93306; G0008; G0257; J0692; J0834; J1644; J3370; J3490; J7050; Q9967; U0003

== ENCOUNTER 2020-12-06 07:05 | Day surgery (SDC) | payer OTHER ==
[2020-12-06] MEDS ORDERED: Activase 2 MG VIAL CATH SCH (07:45)
[2020-12-06] MEDS ORDERED: Midazolam HCl 2 mg/2 ml Vial ONE (08:43)
[2020-12-06] MEDS ORDERED: Fentanyl 100 MCG/2 ML VIAL ONE (08:43)
[2020-12-06] MEDS ORDERED: Heparin 1,000 UNITS/ML VIAL ONE (11:23)
--- NOTE | 2020-12-06 11:24 | SPC ---
PROCEDURE: 1. Left upper extremity arteriovenous dialysis fistulogram and venogram 2. Thrombolysis and percutaneous jejunal angioplasty left upper trauma the arteriovenous dialysis fis jorge 3. Mechanical Fogerty thrombectomy arteriovenous anastomosis PROVIDED CLINICAL HISTORY: Clotted left upper extremity arteriovenous dialysis fistula. Patient has a graft in place. COMPARISON: None TECHNIQUE: The procedure including the risks and complication were explained to the patient, and informed consen t was obtained. Patient was placed on the angiography table in the supine position. There is absence of a thrill or bruit in the left upper extremity arterial venous dialysis fistula. Limited ul trasound evaluation also does not demonstrate flow within the AV fistula/graft. The left upper extremity was meticulously prepped and draped in usual sterile fashion. The skin and subcutaneous tissues were infiltrated with buffered 1% lidocaine for local anesthesia at the intended puncture sites. The left upper extremity arteriovenous dialysis fistula/graft was accessed in both the venous and arterial directions with placement of short 6 Bermudian vascular sheaths . A 5 B[place]udian Berenstein catheter and 0.035 inch Glidewire were manipulated through the graft venous anastomosis. Venogram was performed demonstrating patency of the axillary and subclavian vein with ve ry sluggish flow due to occlusion of the fistula. A second 5 B[place]udian Berenstein catheter was then advanced through the arteriovenous anastomosis, and contrast injection confirms patency of the artery . This catheter was then withdrawn just within the graft. Approximately 3 mL of a mixture of 6 mg of recombinant TPA and sterile water were placed along the ar terial limb of the graft, and 6 mL of this mixture was then placed along the venous outflow of the graft. SENIOR CONTRACTS MANAGER was then performed throughout the graft including at the venous anastomosis. A severe foca l stricture was present at the graft venous anastomosis. However, the balloon did achieve full profile. A 0.018 inch guidewire was then advanced through the arteriovenous anastomosis. A 4 B[place]udian F ogarty balloon was advanced over the guidewire and placed just distal to the arteriovenous anastomosis. The balloon was slightly inflated and withdrawn through the arteriovenous anastomosis. T he balloon was then further dilated and withdrawn to the level of the sheath. Flow was present within the graft, but there is persistent irregularity throughout the graft. Angioplasty was again pe rformed from the level of the graft venous anastomosis throughout the graft. SENIOR CONTRACTS MANAGER was also performed of the proximal portion of the graft with the 6 mm diameter angioplasty balloon. Gio catheter was again replaced and withdrawn through the arteriovenous anastomosis. Again there was only sluggish flow seen throughout the fistula. 1 mL of remaining mixture of the sterile water and the recombinant tPA was then injected through the sheath directed in the arterial direction. Angioplasty was performed throughout the graft. However, again, adequate flow was unable to be established. The proce dure was terminated at this point. Patient tolerated the procedure well and without immediate complication. Fluoroscopy: Time-15 minutes Dose-[id number] mGy centimeter squared IMPRESSION: 1. Clotted left upper extremity arteriovenous dialysis fistula/graft with critical stenosis at the gr aft venous anastomosis. 2. Thrombolysis, SENIOR CONTRACTS MANAGER, and Gio thrombectomy were performed. However, flow was unable to be reestab lished throughout the arteriovenous fistula/graft.
[2020-12-06 11:48] VITALS: BP 154/92; TEMP 98
--- NOTE | 2020-12-08 15:29 | SPC ---
PROCEDURE: 1. Left upper extremity arteriovenous dialysis fistulogram and venogram 2. Thrombolysis and percutaneous jejunal angioplasty left upper trauma the arteriovenous dialysis fis jorge 3. Mechanical Fogerty thrombectomy arteriovenous anastomosis PROVIDED CLINICAL HISTORY: Clotted left upper extremity arteriovenous dialysis fistula. Patient has a graft in place. COMPARISON: None TECHNIQUE: The procedure including the risks and complication were explained to the patient, and informed consen t was obtained. Patient was placed on the angiography table in the supine position. There is absence of a thrill or bruit in the left upper extremity arterial venous dialysis fistula. Limited ul trasound evaluation also does not demonstrate flow within the AV fistula/graft. The left upper extremity was meticulously prepped and draped in usual sterile fashion. The skin and subcutaneous tissues were infiltrated with buffered 1% lidocaine for local anesthesia at the intended puncture sites. The left upper extremity arteriovenous dialysis fistula/graft was accessed in both the venous and arterial directions with placement of short 6 [place] vascular sheaths . A 5 [place] Berenstein catheter and 0.035 inch Glidewire were manipulated through the graft venous anastomosis. Venogram was performed demonstrating patency of the axillary and subclavian vein with ve ry sluggish flow due to occlusion of the fistula. A second 5 [place] Berenstein catheter was then advanced through the arteriovenous anastomosis, and contrast injection confirms patency of the artery . This catheter was then withdrawn just within the graft. Approximately 3 mL of a mixture of 6 mg of recombinant TPA and sterile water were placed along the ar terial limb of the graft, and 6 mL of this mixture was then placed along the venous outflow of the graft. TAKE DOWN SORTER was then performed throughout the graft including at the venous anastomosis. A severe foca l stricture was present at the graft venous anastomosis. However, the balloon did achieve full profile. A 0.018 inch guidewire was then advanced through the arteriovenous anastomosis. A 4 [place] F ogarty balloon was advanced over the guidewire and placed just distal to the arteriovenous anastomosis. The balloon was slightly inflated and withdrawn through the arteriovenous anastomosis. T he balloon was then further dilated and withdrawn to the level of the sheath. Flow was present within the graft, but there is persistent irregularity throughout the graft. Angioplasty was again pe rformed from the level of the graft venous anastomosis throughout the graft. TAKE DOWN SORTER was also performed of the proximal portion of the graft with the 6 mm diameter angioplasty balloon. Gio catheter was again replaced and withdrawn through the arteriovenous anastomosis. Again there was only sluggish flow seen throughout the fistula. 1 mL of remaining mixture of the sterile water and the recombinant tPA was then injected through the sheath directed in the arterial direction. Angioplasty was performed throughout the graft. However, again, adequate flow was unable to be established. The proce dure was terminated at this point. Patient tolerated the procedure well and without immediate complication. Fluoroscopy: Time-15 minutes Dose-[id number] mGy centimeter squared IMPRESSION: 1. Clotted left upper extremity arteriovenous dialysis fistula/graft with critical stenosis at the gr aft venous anastomosis. 2. Thrombolysis, TAKE DOWN SORTER, and Gio thrombectomy were performed. However, flow was unable to be reestab lished in the arteriovenous fistula/graft. Transcribed Date/Time: 12/08/2020 3:29 PM
== END 2020-12-06 11:20 | disposition short-term general hospital (02) ==
LOC: SPEC 07:05
PROVIDERS: ATTEND Internal Medicine Nephrology
PROC: 03C60ZZ Extirpation of Matter from Left Axillary Artery, Open Approach (ICD-10-PCS; principal; 2020-12-06)
DX: T82.868A Thrombosis due to vascular prosthetic devices, implants and grafts, initial encounter (principal); I13.2 Hypertensive heart and chronic kidney disease with heart failure and with stage 5 chronic kidney disease, or end stage renal disease; E11.22 Type 2 diabetes mellitus with diabetic chronic kidney disease; N18.6 End stage renal disease; I50.9 Heart failure, unspecified; D63.1 Anemia in chronic kidney disease; K21.9 Gastro-esophageal reflux disease without esophagitis; E46 Unspecified protein-calorie malnutrition; Z68.28 Body mass index [BMI] 28.0-28.9, adult; Z99.2 Dependence on renal dialysis; Z20.822 Contact with and (suspected) exposure to COVID-19
CPT/HCPCS: 36901; 36905; J2250; J2997; J3010

== ENCOUNTER 2020-12-06 11:15 | Inpatient (IN) | payer OTHER ==
[2020-12-06] MEDS ORDERED: Heparin 10,000 UNITS/ 10 ML VIAL ONE (12:45)
[2020-12-06 12:56] LABS: #Basophils 0.1 thou/uL (0.0-0.2); #Eosinphils 0.2 thou/uL (0.0-0.7); #Lymphocytes 1.5 thou/uL (1.20-3.40); #Monocytes 0.6 thou/uL (0.11-0.59); #Neutrophils 5.9 thou/uL (1.40-6.50); %Basophils 0.9 % (0.0-1.0); %Eosinophils 2.9 % (0.0-10.0); %Lymphocytes 18.3 % (21.0-51.0); %Monocytes 7.2 % (0.0-10.0); %Neutrophils 70.7 % (42.0-75.0); Hemoglobin 11.1 g/dL (14.0-18.0); Mean Corpuscular Hemoglobin 34.6 pg (27.0-31.0); Mean Platelet Volume 8.2 fL (7.4-10.4); Platelet Count 275 thou/uL (130-400); RBC Distribution Width 13.8 % (11.5-14.5); Red Blood Cell (RBC) Count 3.21 mill/uL (4.70-6.10); White Blood Cell (WBC) Count 8.4 thou/uL (4.8-10.8)
[2020-12-06 13:20] LABS: ALT (SGPT) 7 U/L (8-55); AST (SGOT) 10 U/L (5-34); Albumin 3.4 g/dL (3.5-5.0); Alkaline Phosphatase 95 U/L (40-110); Anion Gap 17 mmol/L (10-20); BUN (Urea Nitrogen) 45 mg/dL (8.4-25.7); Bilirubin, Total 0.5 mg/dL (0.2-1.2); Calc. Creatinine Clearance 0 mL/min (70-130); Calcium 9.2 mg/dL (7.8-10.44); Carbon Dioxide 26 mmol/L (22-29); Chloride 102 mmol/L (98-107); Globulin 3.2 g/dL (2.4-3.5); Glucose 129 mg/dL (70-105); Potassium 3.4 mmol/L (3.5-5.1); Protein, Total 6.6 g/dL (6.0-8.3); Sodium 142 mmol/L (136-145)
[2020-12-06 16:57] LABS: SARS-CoV-2 NAA Rapid Test Not Detected (NotDetected)
[2020-12-06] MEDS ORDERED: CEFAZOLIN 2 GM in Premix Bag 1 BAG IVPB SCH (17:30)
[2020-12-06] MEDS ORDERED: Ondansetron ODT 4 MG TAB PO PRN (18:33)
[2020-12-06] MEDS ORDERED: hydrALAZINE 20 MG/ML VIAL SLOW IVP PRN (18:33)
[2020-12-06] MEDS ORDERED: HumaLOG 300 UNITS/3 ML VIAL SC PRN ×2 (18:33)
[2020-12-06] MEDS ORDERED: Dextrose 50% Abboject 50 ML SYRINGE SLOW IVP PRN (18:33)
[2020-12-06] MEDS ORDERED: Ondansetron PF 4 MG/2 ML Vial IVP PRN (18:33)
[2020-12-06] MEDS ORDERED: Dextrose 5% in Water 1,000 ML IV PRN (18:33)
[2020-12-06] MEDS ORDERED: Acetaminophen 500 MG TAB PO PRN (18:33)
[2020-12-06 20:04] LABS: HBSAg Index 0.21 S/CO (0-0.99); Hep B Surf Ag Non-Reactive S/CO (NonReactive)
[2020-12-06 22:20] VITALS: BMI 29.7
[2020-12-06] MEDS: Famotidine 20 MG TAB PO SCH (22:21)
[2020-12-07 06:02] LABS: #Basophils 0.1 thou/uL (0.0-0.2); #Eosinphils 0.3 thou/uL (0.0-0.7); #Lymphocytes 1.7 thou/uL (1.20-3.40); #Monocytes 0.7 thou/uL (0.11-0.59); #Neutrophils 4.8 thou/uL (1.40-6.50); %Eosinophils 4.1 % (0.0-10.0); %Lymphocytes 22.9 % (21.0-51.0); %Monocytes 8.6 % (0.0-10.0); %Neutrophils 63.3 % (42.0-75.0); Hemoglobin 10.3 g/dL (14.0-18.0); Mean Corpuscular HGB CONC 34.2 g/dL (32.0-36.0); Mean Corpuscular Hemoglobin 34.4 pg (27.0-31.0); Platelet Count 245 thou/uL (130-400); RBC Distribution Width 13.8 % (11.5-14.5); Red Blood Cell (RBC) Count 2.98 mill/uL (4.70-6.10); White Blood Cell (WBC) Count 7.6 thou/uL (4.8-10.8)
[2020-12-07 06:40] LABS: Anion Gap 12 mmol/L (10-20); BUN (Urea Nitrogen) 20 mg/dL (8.4-25.7); Calc. Creatinine Clearance 18 mL/min (70-130); Calcium 8.4 mg/dL (7.8-10.44); Carbon Dioxide 27 mmol/L (22-29); Chloride 102 mmol/L (98-107); Glucose 101 mg/dL (70-105); Potassium 3.4 mmol/L (3.5-5.1); Sodium 138 mmol/L (136-145)
[2020-12-07] MEDS: Multivitamin W/ Minerals 1 TAB PO SCH (08:53)
[2020-12-07] MEDS: Folic Acid 1 MG TAB PO SCH (08:53)
[2020-12-07] MEDS ORDERED: Ondansetron PF 4 MG/2 ML Vial ONE (09:16)
[2020-12-07] MEDS ORDERED: Dexamethasone 20 MG/5 ML VIAL ONE (09:16)
[2020-12-07] MEDS ORDERED: Glycopyrrolate 0.2 MG/ML 5 ML SYRINGE ONE (09:16)
[2020-12-07] MEDS ORDERED: PROPOFOL 200 MG/20 ML VIAL ONE (09:16)
[2020-12-07] MEDS ORDERED: Bupivacaine HCl 0.5%/Epinephrine 1:200,000/PF 30 ml Vial ONE (09:16)
[2020-12-07] MEDS ORDERED: PHENYLEPHRINE-NS 100 MCG/ML 10 ML SYRINGE ONE (09:16)
[2020-12-07] MEDS ORDERED: Midazolam HCl 2 mg/2 ml Vial ONE (13:15)
[2020-12-07] MEDS ORDERED: Fentanyl 100 MCG/2 ML VIAL ONE ×2 (13:15→14:57)
[2020-12-07] MEDS ORDERED: Lidocaine 1% (PF) 30 ML VIAL ONE (13:36)
[2020-12-07] MEDS ORDERED: EPINEPHrine 1 MG/ML AMP ONE (14:37)
[2020-12-07] MEDS ORDERED: Bupivacaine 0.25% HCL 30 ML VIAL ONE (14:37)
[2020-12-07] MEDS ORDERED: Protamine Sulfate 50 MG/5 ML VIAL ONE (14:37)
[2020-12-07] MEDS ORDERED: Heparin 5,000 UNITS/ML VIAL ONE (14:37)
[2020-12-07] MEDS ORDERED: Bupivacaine PF 0.5% 30 ML VIAL ONE (14:41)
[2020-12-07] MEDS ORDERED: Propofol 1,000 MG/100 ML VIAL IV ONE (14:57)
[2020-12-07] MEDS ORDERED: XYLOCAINE 2%-EPI 1:100,000 20 ML VIAL ONE (15:32)
[2020-12-07] MEDS ORDERED: Ioversol 68 % 50 ML VIAL ONE (15:41)
[2020-12-07] MEDS: Famotidine 20 MG TAB PO SCH (20:46)
[2020-12-08 09:03] LABS: #Basophils 0.1 thou/uL (0.0-0.2); #Eosinphils 0.1 thou/uL (0.0-0.7); #Lymphocytes 1.6 thou/uL (1.20-3.40); #Monocytes 0.5 thou/uL (0.11-0.59); #Neutrophils 5.2 thou/uL (1.40-6.50); %Basophils 0.9 % (0.0-1.0); %Eosinophils 0.8 % (0.0-10.0); %Lymphocytes 21.6 % (21.0-51.0); %Monocytes 7.1 % (0.0-10.0); %Neutrophils 69.6 % (42.0-75.0); Hemoglobin 9.6 g/dL (14.0-18.0); Mean Corpuscular HGB CONC 33.6 g/dL (32.0-36.0); Mean Corpuscular Hemoglobin 34.2 pg (27.0-31.0); Mean Platelet Volume 8.4 fL (7.4-10.4); Platelet Count 266 thou/uL (130-400); RBC Distribution Width 13.7 % (11.5-14.5); Red Blood Cell (RBC) Count 2.82 mill/uL (4.70-6.10); White Blood Cell (WBC) Count 7.5 thou/uL (4.8-10.8)
[2020-12-08 09:19] LABS: Anion Gap 15 mmol/L (10-20); BUN (Urea Nitrogen) 19 mg/dL (8.4-25.7); Calc. Creatinine Clearance 20 mL/min (70-130); Calcium 8.3 mg/dL (7.8-10.44); Carbon Dioxide 27 mmol/L (22-29); Chloride 99 mmol/L (98-107); Glucose 145 mg/dL (70-105); Potassium 3.9 mmol/L (3.5-5.1); Sodium 137 mmol/L (136-145)
[2020-12-08] MEDS ORDERED: Heparin 10,000 UNITS/ 10 ML VIAL ONE (09:45)
[2020-12-08] MEDS ORDERED: CEFAZOLIN 2 GM in Premix Bag 1 BAG IVPB SCH (16:15)
[2020-12-08] MEDS: Multivitamin W/ Minerals 1 TAB PO SCH (17:06)
[2020-12-08] MEDS: Folic Acid 1 MG TAB PO SCH (17:06)
[2020-12-08] MEDS: Famotidine 20 MG TAB PO SCH (21:10)
[2020-12-09] MEDS ORDERED: EPINEPHrine 1 MG/ML AMP ONE (08:28)
[2020-12-09] MEDS ORDERED: Bupivacaine PF 0.5% 30 ML VIAL ONE (08:28)
[2020-12-09] MEDS ORDERED: Sodium Chloride 0.9% 20 ML ONE (08:28)
[2020-12-09] MEDS ORDERED: Lidocaine 1% (PF) 30 ML VIAL ONE (08:28)
[2020-12-09] MEDS ORDERED: Heparin 10,000 UNITS/ 10 ML VIAL ONE (08:28)
[2020-12-09] MEDS ORDERED: Midazolam HCl 2 mg/2 ml Vial ONE (08:36)
[2020-12-09] MEDS ORDERED: Ketamine 50 MG/ML (10ML VIAL) ONE (08:37)
[2020-12-09] MEDS ORDERED: PROPOFOL 200 MG/20 ML VIAL ONE (09:03)
[2020-12-09] MEDS: Folic Acid 1 MG TAB PO SCH (09:45)
[2020-12-09] MEDS: Multivitamin W/ Minerals 1 TAB PO SCH (09:45)
[2020-12-09 10:32] VITALS: BP 138/87; TEMP 97.3
[2020-12-09 18:28] LABS: SARS-CoV-2 PCR by NAA Not Detected (NotDetected)
== END 2020-12-09 16:50 | disposition home or self-care (01) | DRG 252 ==
LOC: ERS 11:15 → SURG A 14:38
PROVIDERS: ADMIT Internal Medicine; ATTEND Family Medicine
PROC: 03CY0ZZ Extirpation of Matter from Upper Artery, Open Approach (ICD-10-PCS; principal; 2020-12-07)
PROC: 05C80ZZ Extirpation of Matter from Left Axillary Vein, Open Approach (ICD-10-PCS; 2020-12-07)
PROC: 5A1D70Z Performance of Urinary Filtration, Intermittent, Less than 6 Hours Per Day (ICD-10-PCS; 2020-12-08)
PROC: 0JH63XZ Insertion of Tunneled Vascular Access Device into Chest Subcutaneous Tissue and Fascia, Percutaneous Approach (ICD-10-PCS; 2020-12-09)
PROC: 02HV33Z Insertion of Infusion Device into Superior Vena Cava, Percutaneous Approach (ICD-10-PCS; 2020-12-09)
DX: T82.868A Thrombosis due to vascular prosthetic devices, implants and grafts, initial encounter (principal); N18.6 End stage renal disease; E46 Unspecified protein-calorie malnutrition; I13.2 Hypertensive heart and chronic kidney disease with heart failure and with stage 5 chronic kidney disease, or end stage renal disease; Y83.9 Surgical procedure, unspecified as the cause of abnormal reaction of the patient, or of later complication, without mention of misadventure at the time of the procedure; D63.1 Anemia in chronic kidney disease; E78.5 Hyperlipidemia, unspecified; E66.9 Obesity, unspecified; K21.9 Gastro-esophageal reflux disease without esophagitis; E20.9 Hypoparathyroidism, unspecified; E11.22 Type 2 diabetes mellitus with diabetic chronic kidney disease; I50.9 Heart failure, unspecified; Z20.822 Contact with and (suspected) exposure to COVID-19; R62.7 Adult failure to thrive; Y92.9 Unspecified place or not applicable; Z99.2 Dependence on renal dialysis; Z79.4 Long term (current) use of insulin; Z83.3 Family history of diabetes mellitus; Z82.49 Family history of ischemic heart disease and other diseases of the circulatory system; Z79.899 Other long term (current) drug therapy; Z68.29 Body mass index [BMI] 29.0-29.9, adult
CPT/HCPCS: 36416; 36556; 36901; 36905; 71045; 76000; 80048; 80053; 85025; 87340; 87635; 90471; 90732; 90935; 93005; C1752; G0009; G0257; J0171; J0690; J1100; J1642; J1644; J2001; J2250; J2405; J2704; J2720; J2997; J3010; Q9967; S0020; U0002; U0003; U0005

== ENCOUNTER 2020-12-14 11:06 | Day surgery (SDC) | payer OTHER ==
[2020-12-10 12:06] VITALS: BMI 28.0
[~2020-12-14 11:06] MED LIST: Bupivacaine HCl 0.5%/Epinephrine 1:200,000/PF 30 ml Vial ONE; Lidocaine 1% PF 5 ML VIAL ONE; PROPOFOL 200 MG/20 ML VIAL ONE
[2020-12-14] MEDS ORDERED: XYLOCAINE 2%-EPI 1:100,000 20 ML VIAL ONE (12:34)
[2020-12-14] MEDS ORDERED: Heparin 5,000 UNITS/ML VIAL ONE (12:34)
[2020-12-14] MEDS ORDERED: Bupivacaine PF 0.5% 30 ML VIAL ONE (12:34)
[2020-12-14] MEDS ORDERED: Protamine Sulfate 50 MG/5 ML VIAL ONE (12:34)
[2020-12-14] MEDS ORDERED: Midazolam HCl 2 mg/2 ml Vial ONE (12:51)
[2020-12-14] MEDS ORDERED: Propofol 500 MG/50 ML VIAL ONE (12:51)
[2020-12-14] MEDS ORDERED: Meperidine HCl/PF 25 MG/ML VIAL ONE (12:51)
[2020-12-14] MEDS ORDERED: Heparin 1,000 UNITS/ML VIAL ONE (14:42)
--- NOTE | 2020-12-14 14:49 | OP ---
DATE OF PROCEDURE: 12/14/2020 PREOPERATIVE DIAGNOSES: 1. End-stage renal disease. 2. Thrombosed left upper arm dialysis graft. 3. Failed interventional and surgical thrombectomy and revision. 4. Ultrasound vein mapping 2 years suggested poor veins in right upper arm. POSTOPERATIVE DIAGNOSES: 1. End-stage renal disease. 2. Thrombosed left upper arm dialysis graft. 3. Failed interventional and surgical thrombectomy and revision. 4. Ultrasound vein mapping 2 years suggested poor veins in right upper arm. 5. Adequate forearm vein for Nicola fistula. PROCEDURE PERFORMED: Exploration of left proximal volar forearm below the antecubital fossa. FINDINGS: Antecubital cephalic vein to be of excellent caliber, although cephalic vein outflow to the upper arm seemed to be small, but questionably adequate and had more distal takeoff with communication in the basilic vein large perforating branch. Therefore, exploration of the wrist formed a Nicola fistula. ANESTHESIA: Regional and TIVA. DESCRIPTION OF PROCEDURE: The patient was taken to the operating room where under regional anesthesia and intravenous sedation, right upper extremity was prepared with ChloraPrep and draped in routine fashion. Incision was made in the proximal volar forearm below the antecubital fossa longitudinally, carried down through skin and subcutaneous tissue. The cephalic vein in the forearm was of excellent caliber, although outflow in the upper arm cephalic vein was equivocally smaller. The more distal takeoff the basilic vein in the medial arm was appreciated and the large perforating branch appreciated. Thus, exploration done at the wrist where incision was made at the wrist longitudinally, carried down to skin and subcutaneous tissue between the radial artery and cephalic vein. Cephalic vein and radial artery were of adequate caliber. Cephalic vein at the wrist calibrated to a 3.5 mm coronary dilator, passing unobstructed. Radial artery dissected free. Heparin administered 6000 units. After adequate circulation time, radial artery clamped proximally and distally. The hand side of the cephalic vein ligated with 3-0 silk ties. The vein was divided, spatulated, interrogated with coronary dilators as noted and heparinized saline flushed. An atraumatic bulldog clamp applied and the vein spatulated to match the arteriotomy in longitudinal radial artery, 3 cm anastomosis with continuous suture of 6-0 Prolene, creating the anastomosis, releasing the clamps, noting excellent flow in the fistula, noting good signal throughout the forearm and antecubital area. Good hemostasis noted. The patient was given protamine intravenously by Anesthesia. Subcutaneous tissues of both wounds approximated with 3-0 Monocryl, skin with subdermal 4-0 Monocryl, and Violet glue applied. Job ID: [id number]
== END 2020-12-14 15:45 | disposition home or self-care (01) ==
LOC: SDC 11:06
PROVIDERS: ATTEND Specialist
PROC: 031C3ZF Bypass Left Radial Artery to Lower Arm Vein, Percutaneous Approach (ICD-10-PCS; principal; 2020-12-14)
DX: T85.868A Thrombosis due to other internal prosthetic devices, implants and grafts, initial encounter (principal); N18.6 End stage renal disease; Z79.4 Long term (current) use of insulin; Z79.899 Other long term (current) drug therapy
CPT/HCPCS: 36416; J0690; J1644; J2175; J2250; J2704; J2720; S0020

== ENCOUNTER 2020-12-30 10:00 | Day surgery (SDC) | payer OTHER ==
[2020-12-28 13:00] VITALS: BMI 28.0
[2020-12-30 11:19] LABS: Hemoglobin 10.1 g/dL (14.0-18.0)
[2020-12-30] MEDS ORDERED: Bupivacaine PF 0.5% 30 ML VIAL ONE (11:28)
[2020-12-30] MEDS ORDERED: Heparin 10,000 UNITS/ 10 ML VIAL ONE (11:28)
[2020-12-30] MEDS ORDERED: Sodium Chloride 0.9% 10 ML ONE (11:28)
[2020-12-30] MEDS ORDERED: EPINEPHrine 1 MG/ML AMP ONE (11:28)
[2020-12-30 11:37] LABS: SARS-CoV-2 NAA Rapid Test Not Detected (NotDetected)
[2020-12-30 11:44] LABS: Anion Gap 17 mmol/L (10-20); BUN (Urea Nitrogen) 55 mg/dL (8.4-25.7); Calc. Creatinine Clearance 8 mL/min (70-130); Calcium 8.7 mg/dL (7.8-10.44); Carbon Dioxide 22 mmol/L (22-29); Chloride 104 mmol/L (98-107); Glucose 119 mg/dL (70-105); Potassium 5.1 mmol/L (3.5-5.1); Sodium 138 mmol/L (136-145)
[2020-12-30] MEDS ORDERED: PROPOFOL 40 ML ONE (12:48)
[2020-12-30] MEDS ORDERED: Fentanyl 100 MCG/2 ML VIAL ONE (13:33)
--- NOTE | 2020-12-30 14:57 | RAD ---
PORTABLE CHEST: INDICATION: Central line placement. COMPARISON: 12/09/2020. FINDINGS: A dual-lumen catheter is in place via the right jugular. This line overlies the SVC. The lungs appear clear. No infiltrate. Heart and mediastinum unremarkable. No interval change in t he chest. IMPRESSION: No acute abnormality. POS: AGW
--- NOTE | 2020-12-31 07:23 | OP ---
DATE OF PROCEDURE: 12/30/2020 PREOPERATIVE DIAGNOSES: End-stage renal disease, poorly functioning right IJ cuffed tunneled hemodialysis catheter, immature right Nicola fistula. ANESTHESIA: Regional, TIVA, 0.5% Marcaine 30 mL mixed with 1% Xylocaine with epinephrine 20 mL. INDICATIONS: I was called by the dialysis center that they have tried all maneuvers to try to optimize function of his right IJ cuffed tunneled hemodialysis catheter, but it is still poorly functional. He is not adequately dialyzed in the last week. He has poor transportation. He was scheduled yesterday to have this procedure done, but could not arrange transportation due to weather conditions. Today, he arrives for replacement of the IJ catheter. Right fistula has a good thrill and bruit. I will need to reassess it in 3 to 4 weeks. He may need a fistulogram in 3 to 6 weeks. DESCRIPTION OF PROCEDURE: The patient was taken to the operating room, where sedation, neck and chest prepared with ChloraPrep and draped in routine fashion. Local anesthetic was infiltrated in the skin and subcutaneous tissue about the operative site. Incision was made in the right neck incision, exposing the catheter, clamping it, pulling it out of the incision, transecting it, removing the old catheter, re-prepped the area with ChloraPrep, making a new stab incision for a new exit site and using a tunneling device, pre-curved [employer] cuffed tunneled hemodialysis catheter tunneled between the incisions and placing the fabric cuff beneath the skin exit site, catheter was secured with 2 interrupted suture of 3-0 nylon. Sterile dressing applied. Dilator and Peel-Away Sheath placed with J-wire in superior vena cava and dilator and J-wire were removed. Catheter was placed with Peel-Away Sheath and Peel-Away Sheath removed. Fluoroscopic good position. Platysma was approximated with 4-0 Monocryl, skin with subdermal 4-0 Monocryl, and [place] glue applied. Each port aspirated blood, flushed with saline solution and heparinized saline solution with 1000 units volume of port. Job ID: [id number]
== END 2020-12-30 15:10 | disposition home or self-care (01) ==
LOC: SDC 10:00
PROVIDERS: ATTEND Specialist
PROC: 0JPT3XZ Removal of Tunneled Vascular Access Device from Trunk Subcutaneous Tissue and Fascia, Percutaneous Approach (ICD-10-PCS; principal; 2020-12-30)
PROC: 0JH63XZ Insertion of Tunneled Vascular Access Device into Chest Subcutaneous Tissue and Fascia, Percutaneous Approach (ICD-10-PCS; principal; 2020-12-30)
PROC: 02HV33Z Insertion of Infusion Device into Superior Vena Cava, Percutaneous Approach (ICD-10-PCS; principal; 2020-12-30)
PROC: B518ZZA Fluoroscopy of Superior Vena Cava, Guidance (ICD-10-PCS; principal; 2020-12-30)
DX: T82.41XA Breakdown (mechanical) of vascular dialysis catheter, initial encounter (principal); N18.6 End stage renal disease; Z20.822 Contact with and (suspected) exposure to COVID-19
CPT/HCPCS: 71045; 80048; 85014; 85018; C1752; J0171; J0690; J1644; J2704; J3010; S0020; U0002

== ENCOUNTER 2021-01-20 07:15 | Day surgery (SDC) | payer OTHER ==
[2021-01-19 12:11] VITALS: BMI 26.6
[2021-01-20] MEDS ORDERED: FLU VACC QS2020-21(6MOS UP)/PF 60 MCG/0.5 ML SYRINGE IM ONE (09:00)
[2021-01-20 09:07] VITALS: BP 119/80; TEMP 97.8
[2021-01-20] MEDS ORDERED: Iopamidol 300 61% 100 ML VIAL FS ONE (11:11)
== END 2021-01-20 08:55 | disposition home or self-care (01) ==
LOC: SPEC 07:15
PROVIDERS: ATTEND Specialist
PROC: B51W1ZZ Fluoroscopy of Dialysis Shunt/Fistula using Low Osmolar Contrast (ICD-10-PCS; principal; 2021-01-20)
DX: T82.898A Other specified complication of vascular prosthetic devices, implants and grafts, initial encounter (principal); I13.2 Hypertensive heart and chronic kidney disease with heart failure and with stage 5 chronic kidney disease, or end stage renal disease; E11.22 Type 2 diabetes mellitus with diabetic chronic kidney disease; N18.6 End stage renal disease; I50.9 Heart failure, unspecified; D63.1 Anemia in chronic kidney disease; E66.9 Obesity, unspecified; Z68.26 Body mass index [BMI] 26.0-26.9, adult; Z79.4 Long term (current) use of insulin; Z79.02 Long term (current) use of antithrombotics/antiplatelets; Z79.899 Other long term (current) drug therapy
CPT/HCPCS: 36901; Q9967

== ENCOUNTER 2021-03-03 15:22 | Outpatient (CLI) | payer OTHER ==
[2021-03-04 02:14] LABS: SARS-CoV-2 PCR by NAA Not Detected (NotDetected)
== END 2021-03-03 15:23 | disposition home or self-care (01) ==
LOC: LABBT 15:22
PROVIDERS: ATTEND Specialist
DX: Z01.812 Encounter for preprocedural laboratory examination (principal); N18.6 End stage renal disease; Z99.2 Dependence on renal dialysis; Z20.822 Contact with and (suspected) exposure to COVID-19
CPT/HCPCS: 87635; U0003; U0005

== ENCOUNTER 2021-03-08 09:41 | Day surgery (SDC) | payer OTHER ==
[2021-03-07 14:24] VITALS: BMI 27.1
[2021-03-08] MEDS ORDERED: Lidocaine 1% (PF) 30 ML VIAL ONE (11:10)
[2021-03-08] MEDS ORDERED: Bupivacaine PF 0.5% 30 ML VIAL ONE (12:01)
[2021-03-08] MEDS ORDERED: Sodium Chloride 0.9% 10 ML ONE (12:01)
[2021-03-08] MEDS ORDERED: EPINEPHrine 1 MG/ML AMP ONE (12:01)
[2021-03-08] MEDS ORDERED: Lidocaine 1% w/Epinephrine 1:100K 20 ML VIAL ONE (12:01)
[2021-03-08] MEDS ORDERED: Heparin 10,000 UNITS/ 10 ML VIAL ONE (12:01)
[2021-03-08] MEDS ORDERED: Fentanyl 100 MCG/2 ML VIAL ONE (12:02)
[2021-03-08] MEDS ORDERED: Heparin 5,000 UNITS/ML VIAL ONE (12:38)
[2021-03-08] MEDS ORDERED: Lidocaine 1% PF 5 ML VIAL ONE (13:00)
[2021-03-08] MEDS ORDERED: PROPOFOL 200 MG/20 ML VIAL ONE (13:00)
[2021-03-08] MEDS ORDERED: PHENYLEPHRINE-NS 100 MCG/ML 10 ML SYRINGE ONE (13:00)
[2021-03-08] MEDS ORDERED: Ondansetron PF 4 MG/2 ML Vial ONE (13:00)
[2021-03-08] MEDS ORDERED: Protamine Sulfate 50 MG/5 ML VIAL ONE (13:48)
[2021-03-08 14:18] LABS: Anion Gap 16 mmol/L (10-20); BUN (Urea Nitrogen) 34 mg/dL (8.4-25.7); Calc. Creatinine Clearance 12 mL/min (70-130); Calcium 9.8 mg/dL (7.8-10.44); Carbon Dioxide 25 mmol/L (22-29); Chloride 101 mmol/L (98-107); Glucose 140 mg/dL (70-105); Sodium 138 mmol/L (136-145)
[2021-03-08 14:52] LABS: %Neutrophils 58.5 % (42.0-75.0); Hemoglobin 11.9 g/dL (14.0-18.0); Mean Corpuscular HGB CONC 34.7 g/dL (32.0-36.0); Mean Corpuscular Hemoglobin 34.9 pg (27.0-31.0); Mean Platelet Volume 8.4 fL (7.4-10.4); Platelet Count 346 thou/uL (130-400); RBC Distribution Width 12.5 % (11.5-14.5); Red Blood Cell (RBC) Count 3.41 mill/uL (4.70-6.10); White Blood Cell (WBC) Count 7.9 thou/uL (4.8-10.8)
[2021-03-08 14:53] LABS: #Basophils 0.1 thou/uL (0.0-0.2); #Eosinphils 0.5 thou/uL (0.0-0.7); #Monocytes 0.7 thou/uL (0.11-0.59); #Neutrophils 4.6 thou/uL (1.40-6.50); %Basophils 1.4 % (0.0-1.0); %Eosinophils 6.3 % (0.0-10.0); %Monocytes 8.7 % (0.0-10.0)
[2021-03-08] MEDS ORDERED: Heparin 1,000 UNITS/ML VIAL ONE ×3 (15:11→15:32)
== END 2021-03-08 16:05 | disposition home or self-care (01) ==
LOC: SDC 09:41
PROVIDERS: ATTEND Specialist
PROC: 0JH63XZ Insertion of Tunneled Vascular Access Device into Chest Subcutaneous Tissue and Fascia, Percutaneous Approach (ICD-10-PCS; principal; 2021-03-08)
PROC: 031B0ZF Bypass Right Radial Artery to Lower Arm Vein, Open Approach (ICD-10-PCS; principal; 2021-03-08)
PROC: 0JPT3XZ Removal of Tunneled Vascular Access Device from Trunk Subcutaneous Tissue and Fascia, Percutaneous Approach (ICD-10-PCS; principal; 2021-03-08)
DX: T82.41XA Breakdown (mechanical) of vascular dialysis catheter, initial encounter (principal); T82.590A Other mechanical complication of surgically created arteriovenous fistula, initial encounter; I12.0 Hypertensive chronic kidney disease with stage 5 chronic kidney disease or end stage renal disease; E11.22 Type 2 diabetes mellitus with diabetic chronic kidney disease; N18.6 End stage renal disease; M10.9 Gout, unspecified; Z79.02 Long term (current) use of antithrombotics/antiplatelets; Z79.4 Long term (current) use of insulin; Z79.899 Other long term (current) drug therapy; Z99.2 Dependence on renal dialysis
CPT/HCPCS: 36217; 71045; 75716; 75774; 76942; 80048; 85025; C1752; J0171; J0690; J1644; J2001; J2405; J2704; J2720; J3010; S0020

== ENCOUNTER 2023-09-12 21:11 | Inpatient (IN) | payer MEDICARE, OTHER ==
[2023-09-12 21:47] LABS: #Basophils 0.1 thou/uL (0.0-0.2); #Eosinphils 0.3 thou/uL (0.0-0.7); #Monocytes 0.6 thou/uL (0.11-0.59); #Neutrophils 7.8 thou/uL (1.40-6.50); %Basophils 1.1 % (0.0-1.0); %Eosinophils 2.9 % (0.0-10.0); %Lymphocytes 16.6 % (21.0-51.0); %Monocytes 5.9 % (0.0-10.0); Hemoglobin 11.6 g/dL (14.0-18.0); Mean Corpuscular HGB CONC 33.1 g/dL (32.0-36.0); Mean Corpuscular Hemoglobin 35.7 pg (27.0-31.0); Mean Corpuscular Volume 107.7 fl (78.0-98.0); Platelet Count 206 10x3/uL (130-400); RBC Distribution Width 14.7 % (11.5-14.5); Red Blood Cell (RBC) Count 3.25 mill/uL (4.70-6.10); White Blood Cell (WBC) Count 10.7 10x3/uL (4.8-10.8)
[2023-09-12 22:15] LABS: ALT (SGPT) 32 U/L (8-55); AST (SGOT) 28 U/L (5-34); Albumin 4.4 g/dL (3.5-5.0); Alkaline Phosphatase 133 U/L (40-110); Anion Gap 21 mmol/L (10-20); BUN (Urea Nitrogen) 19 mg/dL (8.4-25.7); Bilirubin, Total 0.2 mg/dL (0.2-1.2); Calc. Creatinine Clearance 0 mL/min (70-130); Calcium 9.5 mg/dL (7.8-10.44); Carbon Dioxide 22 mmol/L (22-29); Chloride 99 mmol/L (98-107); Estimated GFR 7; Globulin 3.4 g/dL (2.4-3.5); Glucose 232 mg/dL (70-105); Potassium 4.7 mmol/L (3.5-5.1); Protein, Total 7.8 g/dL (6.0-8.3); Sodium 137 mmol/L (136-145)
[2023-09-12] MEDS ORDERED: Ondansetron ODT 4 MG TAB PO PRN ×2 (23:35→23:37)
[2023-09-12] MEDS ORDERED: Acetaminophen 325 MG TAB PO PRN (23:35)
[2023-09-12] MEDS ORDERED: Dextrose 50% Abboject 50 ML SYRINGE SLOW IVP PRN (23:36)
[2023-09-12] MEDS ORDERED: HumaLOG 300 UNITS/3 ML VIAL SC PRN ×2 (23:36)
[2023-09-12] MEDS ORDERED: Glucagon 1 MG/ML KIT IM PRN (23:36)
[2023-09-12] MEDS ORDERED: Dextrose 5% in Water 1,000 ML IV PRN (23:36)
[2023-09-12] MEDS ORDERED: Lorazepam 2 MG/ML VIAL IM PRN (23:37)
[2023-09-12] MEDS ORDERED: Lorazepam 1 MG TAB PO PRN (23:37)
[2023-09-12] MEDS ORDERED: Dextrose 5 %-0.45 % NaCl 500 ML IV SCH (23:45)
[2023-09-13 01:07] LABS: Hemoglobin A1c 6.2 % (4.0-6.0)
[2023-09-13] MEDS: Thiamine HCl 200 MG/2 ML VIAL SLOW IVP SCH (01:37)
[2023-09-13 01:49] VITALS: BMI 32.9
[2023-09-13 04:00] LABS: #Basophils 0.1 thou/uL (0.0-0.2); #Eosinphils 0.3 thou/uL (0.0-0.7); #Monocytes 1.1 thou/uL (0.11-0.59); #Neutrophils 8.6 thou/uL (1.40-6.50); %Eosinophils 2.5 % (0.0-10.0); %Monocytes 9.1 % (0.0-10.0); Hematocrit 33.5 % (42.0-52.0); Mean Corpuscular HGB CONC 32.8 g/dL (32.0-36.0); Mean Corpuscular Hemoglobin 34.8 pg (27.0-31.0); Platelet Count 220 10x3/uL (130-400); RBC Distribution Width 15.9 % (11.5-14.5); Red Blood Cell (RBC) Count 3.16 mill/uL (4.70-6.10); White Blood Cell (WBC) Count 11.6 10x3/uL (4.8-10.8)
[2023-09-13 04:28] LABS: Anion Gap 19 mmol/L (10-20); BUN (Urea Nitrogen) 22 mg/dL (8.4-25.7); Calc. Creatinine Clearance 14 mL/min (70-130); Calcium 8.9 mg/dL (7.8-10.44); Carbon Dioxide 23 mmol/L (22-29); Chloride 102 mmol/L (98-107); Estimated GFR 6; Glucose 157 mg/dL (70-105); Potassium 4.9 mmol/L (3.5-5.1); Sodium 139 mmol/L (136-145)
[2023-09-13] MEDS ORDERED: FLU VACC QS2023-24(6MOS UP)/PF 60 MCG/0.5 ML SYRINGE IM ONE (09:00)
[2023-09-13] MEDS: Famotidine 20 MG TAB PO SCH (10:27)
[2023-09-13] MEDS: Folic Acid 1 MG TAB PO SCH (10:27)
[2023-09-13] MEDS ORDERED: CEFAZOLIN 2 GM in Sodium Chloride 0.9% 100 ML IVPB SCH (15:45)
[2023-09-13] MEDS ORDERED: EPINEPHrine 1 MG/ML VIAL ONE (17:57)
[2023-09-13] MEDS ORDERED: Lidocaine 2% PF 5 ML VIAL ONE (17:58)
[2023-09-13] MEDS ORDERED: Bupivacaine 0.25% HCL 30 ML VIAL ONE (17:58)
[2023-09-13] MEDS ORDERED: fentaNYL 50 mcg/mL 1 mL Vial ONE (18:20)
[2023-09-13] MEDS ORDERED: Sodium Chloride 0.9% 100 ML ONE (18:29)
[2023-09-13] MEDS ORDERED: CEFAZOLIN 2 GM VIAL ONE (18:30)
[2023-09-13] MEDS ORDERED: Dexamethasone 20 MG/5 ML VIAL ONE (18:33)
[2023-09-13] MEDS ORDERED: Ondansetron PF 4 MG/2 ML Vial ONE (18:33)
[2023-09-13] MEDS ORDERED: PROPOFOL 200 MG/20 ML VIAL ONE (18:33)
[2023-09-13] MEDS ORDERED: PHENYLEPHRINE-NS 100 MCG/ML 10 ML SYRINGE ONE (18:33)
[2023-09-13] MEDS ORDERED: Lidocaine 1% PF 5 ML VIAL ONE (18:33)
[2023-09-13] MEDS ORDERED: Lorazepam 1 MG TAB PO PRN (23:37)
[2023-09-14] MEDS: Thiamine HCl 200 MG/2 ML VIAL SLOW IVP SCH (01:10)
[2023-09-14] MEDS: Famotidine 20 MG TAB PO SCH (09:47)
[2023-09-14] MEDS: Folic Acid 1 MG TAB PO SCH (09:47)
[2023-09-14 19:36] VITALS: BP 126/73; TEMP 97
[2023-09-14] MEDS ORDERED: Lorazepam 1 MG TAB PO PRN (23:37)
[2023-09-15] MEDS ORDERED: CEFAZOLIN 2 GM in Sodium Chloride 0.9% 100 ML IVPB SCH (18:00)
[2023-09-15] MEDS ORDERED: Lorazepam 0.5 MG TAB PO PRN (23:37)
[2023-09-15] MEDS ORDERED: Thiamine 100 MG TAB PO SCH (23:45)
== END 2023-09-14 19:55 | disposition home or self-care (01) | DRG 314 ==
LOC: ERS 21:11 → 2NO 22:52
PROVIDERS: ADMIT Student in an Organized Health Care Education/Training Program; ATTEND Internal Medicine
PROC: 30233N1 Transfusion of Nonautologous Red Blood Cells into Peripheral Vein, Percutaneous Approach (ICD-10-PCS; 2023-09-12)
PROC: 0JH60XZ Insertion of Tunneled Vascular Access Device into Chest Subcutaneous Tissue and Fascia, Open Approach (ICD-10-PCS; principal; 2023-09-13)
PROC: 02HV33Z Insertion of Infusion Device into Superior Vena Cava, Percutaneous Approach (ICD-10-PCS; 2023-09-13)
PROC: B5181ZA Fluoroscopy of Superior Vena Cava using Low Osmolar Contrast, Guidance (ICD-10-PCS; 2023-09-13)
PROC: 3E033XZ Introduction of Vasopressor into Peripheral Vein, Percutaneous Approach (ICD-10-PCS; 2023-09-13)
DX: T82.898A Other specified complication of vascular prosthetic devices, implants and grafts, initial encounter (principal); N18.6 End stage renal disease; I12.0 Hypertensive chronic kidney disease with stage 5 chronic kidney disease or end stage renal disease; D62 Acute posthemorrhagic anemia; E11.22 Type 2 diabetes mellitus with diabetic chronic kidney disease; E78.5 Hyperlipidemia, unspecified; E66.9 Obesity, unspecified; F10.90 Alcohol use, unspecified, uncomplicated; Z86.16 Personal history of COVID-19; Z99.2 Dependence on renal dialysis; Z98.890 Other specified postprocedural states; Z79.899 Other long term (current) drug therapy
CPT/HCPCS: 36415; 36416; 36430; 80048; 80053; 83036; 85025; 86850; 86900; 86901; 93005; J0171; J1642; J2001; J3010; J3411; J3490; J7042; P9016; S0020